=== PATIENT | female | born 1980 | race Caucasian/White ===

== ENCOUNTER 2016-12-14 03:41 | Inpatient (IN) | payer OTHER ==
[2016-12-14 04:10] VITALS: BMI 27.6
[2016-12-14] MEDS ORDERED: ONDANSETRON *ODT* 4 MG TABLET SL ONE (04:15)
[2016-12-14] MEDS ORDERED: KETOROLAC TROMETHAMINE 60 MG/2 ML VIAL IM ONE (04:15)
--- NOTE | 2016-12-14 04:15 | PDOC ---
History of Present Illness - General History Source: Patient Exam Limitations: No Limitations - History of Present Illness Initial Comments: 12/14/16 04:20 The patient is a 36 year old female with significant past medical history of gallstones who presents to the ED with 3 days of right upper quadrant pain, nausea and vomiting. Patient reports she visited her surgeon yesterday, where she schedule an elective surgery to have her gallbladder removed on December 22. Her surgeon prescribed her tylenol and she states taking the tylenol several times with no improvement. The patient denies fever, chills, cough, SOB, chest pain, and diarrhea. Allergies: NKDA Social History: No alcohol, tobacco, or drug use reported. Past Surgical History: None reported PCP: None reported <Nimco Limon - Last Filed: 12/14/16 04:20> - General History Source: Patient <FlorentinoMike parks - Last Filed: 12/14/16 19:29> - General Chief Complaint: Pain Stated Complaint: PAIN Time Seen by Provider: 12/14/16 03:50 Past History <Nimco Limon - Last Filed: 12/14/16 04:20> - Immunization History Td Vaccination: No - Psycho/Social/Smoking Cessation Hx Anxiety: No Suicidal Ideation: No Smoking Status: Yes Smoking History: Former smoker Have you smoked in the past 12 months: No Number of Cigarettes Smoked Daily: 20 Information on smoking cessation initiated: No Hx Alcohol Use: No Drug/Substance Use Hx: No Substance Use Type: None <Mike Valle - Last Filed: 12/14/16 19:29> - Past Medical History Allergies/Adverse Reactions: Allergies Allergy/AdvReac Type Severity Reaction Status Date / Time No Known Allergies Allergy Verified 06/10/15 20:08 Home Medications: Ambulatory Orders NK [No Known Home Medication] 12/14/16 Review of Systems - Review of Systems Able to Perform ROS?: Yes Comments:: 12/14/16 04:20 CONSTITUTIONAL: Absent: fever, no chills, no fatigue EYES: Absent: visual changes ENT: Absent: ear pain, no sore throat CARDIOVASCULAR: Absent: chest pain, no palpitations RESPIRATORY: Absent: cough, no SOB GI: +right upper quadrant pain, nausea, vomiting Absent: no constipation, no diarrhea GENITOURINARY: Absent: dysuria, no frequency, no hematuria MUSKULOSKELETAL: Absent: back pain, no arthralgia, no myalgia SKIN: Absent: rash NEURO: Absent: headache <Nimco Limon - Last Filed: 12/14/16 04:20> *Physical Exam - Vital Signs Last Vital Signs Temp Pulse Resp BP Pulse Ox 98.2 F 80 18 131/100 100 12/14/16 04:01 12/14/16 04:01 12/14/16 04:01 12/14/16 04:01 12/14/16 04:01 - Physical Exam Comments: 12/14/16 04:20 GENERAL: Well-appearing, well-nourished. Mild distress. HEENT: Normocephalic, atraumatic. PERRL, EOM intact. CARDIOVASCULAR: Normal S1, S2. Regular rate and rhythm. PULMONARY: Clear to auscultation bilaterally. ABDOMEN: Soft, non-distended, right upper quadrant tenderness. EXTREMITIES: Normal ROM in all four extremities. No gross deformities. SKIN: Warm, dry. No rash NEUROLOGICAL: No focal neurological deficits. <Nimco Limon - Last Filed: 12/14/16 04:20> - Vital Signs Last Vital Signs Temp Pulse Resp BP Pulse Ox 98.2 F 80 18 131/100 100 12/14/16 04:01 12/14/16 04:01 12/14/16 04:01 12/14/16 04:01 12/14/16 04:01 <Mike Valle - Last Filed: 12/14/16 19:29> ED Treatment Course - LABORATORY CBC & Chemistry Diagram: 12/14/16 04:50 12/14/16 04:50 <Mike Valle - Last Filed: 12/14/16 19:29> Medical Decision Making - Medical Decision Making 12/14/16 19:28 patient found to have choledocholithiasis on ultrasound. Patient admitted for pain control and eventual therapy Dr. Valle: The scribe's documentation has been prepared under my direction and personally reviewed by me in its entirery. I confirm that the note above accurately reflects all work, treatment, procedures, and medical decision making performed by me. <Mike Valle - Last Filed: 12/14/16 19:29> *DC/Admit/Observation/Transfer - Attestations Scribe Attestion: 12/14/16 04:21 Documentation prepared by Nimco Limon, acting as medical illustrator for Mike Valle MD <Nimco Limon - Last Filed: 12/14/16 04:20> <Mike Valle - Last Filed: 12/14/16 19:29> Diagnosis at time of Disposition: Choledocholithiasis, Gallstones - Discharge Dispostion Condition at time of disposition: Stable
[2016-12-14] MEDS ORDERED: KETOROLAC TROMETHAMINE 60 MG/2 ML VIAL ONE (04:26)
[2016-12-14] MEDS ORDERED: ONDANSETRON *ODT* 4 MG TABLET ONE (04:26)
[2016-12-14] MEDS ORDERED: SODIUM CHLORIDE 1,000 ML IV STA (04:39)
[2016-12-14 04:59] LABS: BASOPHIL 0.5 % (0-2.0); MCH 28.4 pg (25.7-33.7); MCHC 33.1 g/dl (32.0-36.0); MEAN CELL VOLUME 85.6 fl (80-96); MEAN PLT VOLUME 7.5 fl (7.5-11.1); PLATELET COUNT 333 K/MM3 (134-434); WHITE BLOOD COUNT 13.7 K/mm3 (4.0-10.0)
[2016-12-14 05:26] LABS: ALBUMIN 3.4 g/dl (3.4-5.0); ANION GAP 11 (8-16); BILIRUBIN,TOTAL 2.2 mg/dL (0.2-1.0); CALCIUM 8.4 mg/dL (8.5-10.1); CO2 26 mmol/L (21-32); CREATININE 0.7 mg/dL (0.55-1.02); GLUCOSE,RANDOM 96 mg/dL (74-106); TOT PROT 6.6 g/dl (6.4-8.2)
[2016-12-14 05:31] LABS: ALK PHOS 197 U/L (45-117)
[2016-12-14 05:33] LABS: SGOT/AST 1064 U/L (15-37); SGPT/ALT 657 U/L (12-78)
[2016-12-14] MEDS ORDERED: morphine CARPU-JECT 2 MG/1 ML DISP.SYRIN IVPUSH ONE (05:59)
[2016-12-14] MEDS ORDERED: ONDANSETRON 4 MG/2 ML VIAL IVPUSH STA (06:00)
[2016-12-14] MEDS ORDERED: morphine CARPU-JECT 4 MG/1 ML DISP.SYRIN ONE (06:01)
[2016-12-14] MEDS ORDERED: ONDANSETRON 4 MG/2 ML VIAL ONE (06:01)
[2016-12-14] MEDS ORDERED: morphine CARPU-JECT 2 MG/1 ML DISP.SYRIN ONE (06:01)
[2016-12-14] MEDS ORDERED: PIPERACILLIN/TAZOB 4.5 GM 4.5 GM in DEXTROSE 5%-WATER 100 ML IVPB ONE (07:05)
--- NOTE | 2016-12-14 07:10 | PDOC ---
*Physical Exam - Vital Signs Last Vital Signs Temp Pulse Resp BP Pulse Ox 97.9 F 69 18 107/79 100 12/14/16 07:45 12/14/16 07:45 12/14/16 07:45 12/14/16 07:45 12/14/16 07:45 <PioDona - Last Filed: 12/14/16 08:37> - Vital Signs Last Vital Signs Temp Pulse Resp BP Pulse Ox 98.2 F 80 18 131/100 100 12/14/16 04:01 12/14/16 04:01 12/14/16 04:01 12/14/16 04:01 12/14/16 04:01 - Physical Exam Comments: 12/14/16 07:09 Sign-out received from outgoing Emergency Physician Pt interviewed and examined Labs noted I am concerned for cholecystitis versus choledocholithiasis She does not have clinical signs or symptoms of cholangitis Will add lipase Will administer Zosyn Ultrasound pending I am also concerned for possible acetaminophen toxicity She took 4.5gm Sun and 2.5gm Sunday after heavy alcohol consumption Sunday, Sun and Sunday If the LFT abnormalities are secondary to acetaminophen mediated hepatotoxicity , I would expect a bump in her coags Will add PT/PTT Will add acetaminophen level 12/14/16 07:22 12/14/16 08:34 Ultrasound noted Lipase noted Clinical impression: Choledocholithiasis, without current evidence of ascending cholangitis Case discussed in detail with admitting provider including history, physical exam and ancillary studies. Admitting physician has assumed care for the patient, will follow all pending diagnostics and will complete the evaluation and treatment. <Martínez Jacobs - Last Filed: 12/14/16 16:21> ED Treatment Course - LABORATORY CBC & Chemistry Diagram: 12/14/16 04:50 12/14/16 04:50 - ADDITIONAL ORDERS Additional order review: Laboratory Results 12/14/16 12/14/16 12/14/16 07:34 07:34 04:50 INR 1.16 H PTT (Actin FS) 25.5 L Sodium Potassium Chloride Carbon Dioxide Anion Gap BUN Creatinine Creat Clearance w eGFR Random Glucose Calcium Total Bilirubin AST ALT Alkaline Phosphatase Total Protein Albumin Lipase Cancelled Serum , Qual Negative 12/14/16 04:50 INR PTT (Actin FS) Sodium 141 Potassium 3.8 Chloride 104 Carbon Dioxide 26 Anion Gap 11 BUN 13 Creatinine 0.7 Creat Clearance w eGFR > 60 Random Glucose 96 Calcium 8.4 L Total Bilirubin 2.2 H D AST 1064 H ALT 657 H D Alkaline Phosphatase 197 H D Total Protein 6.6 Albumin 3.4 Lipase 155 Serum , Qual 12/14/16 04:50 RBC 4.50 MCV 85.6 MCHC 33.1 RDW 15.0 MPV 7.5 Neutrophils % 77.0 D Lymphocytes % 13.7 D Monocytes % 4.8 Eosinophils % 4.0 Basophils % 0.5 - RADIOLOGY Radiograph Interpretation: 12/14/16 08:37 Abdominal US: The gallbladder is somewhat thickened and contracted with multiple calculi present. The possibility of acute cholecystitis cannot be excluded. If this is clinically suspected, a follow-up HIDA scan may be warranted. The liver is normal in size and texture with no intrahepatic masses seen. There is slight dilatation of the intrahepatic biliary tree and the CBD is mildly dilated measuring 8 mm. No obvious obstruction is identified. The pancreas is normal in size and texture with no pancreatic masses identified. The tail of the pancreas was not well visualized due to overlying bowel gas. There is no evidence of hydronephrosis or acute abnormalities of the right kidney. There is no evidence of AAA. The IVC is patent. IMPRESSION: Cholelithiasis and mild biliary ductal dilatation. Clinical correlation and follow-up recommended. Please see above discussion. Reported By: Philippe Camarena MD 12/14/16 0831 - Medications Given in the ED: ED Medications Discontinued Medications Generic Name Dose Route Start Last Admin Trade Name Freq PRN Reason Stop Dose Admin Sodium Chloride 1,000 mls @ 1,000 mls/hr 12/14/16 04:39 12/14/16 04:54 Normal Saline - IV 12/14/16 05:38 1,000 mls/hr ASDIR STA Administration Piperacillin Sod/Tazobactam 100 mls @ 200 mls/hr 12/14/16 07:05 12/14/16 07:34 Sod 4.5 gm/ Dextrose IVPB 12/14/16 07:34 200 mls/hr ONCE ONE Administration Ketorolac Tromethamine 60 mg 12/14/16 04:15 12/14/16 04:30 Toradol Injection - IM 12/14/16 04:16 60 mg ONCE ONE Administration Morphine Sulfate 6 mg 12/14/16 05:59 12/14/16 06:08 Morphine Injection - IVPUSH 12/14/16 06:00 6 mg ONCE ONE Administration Ondansetron HCl 4 mg 12/14/16 04:15 12/14/16 04:30 Zofran Odt - SL 12/14/16 04:16 4 mg ONCE ONE Administration Ondansetron HCl 4 mg 12/14/16 06:00 12/14/16 06:08 Zofran Injection IVPUSH 12/14/16 06:01 4 mg ONCE STA Administration <Dona Suero - Last Filed: 12/14/16 08:37> - LABORATORY CBC & Chemistry Diagram: 12/14/16 04:50 12/14/16 04:50 - ADDITIONAL ORDERS Additional order review: Laboratory Results 12/14/16 12/14/16 04:50 04:50 Sodium 141 Potassium 3.8 Chloride 104 Carbon Dioxide 26 Anion Gap 11 BUN 13 Creatinine 0.7 Creat Clearance w eGFR > 60 Random Glucose 96 Calcium 8.4 L Total Bilirubin 2.2 H D AST 1064 H ALT 657 H D Alkaline Phosphatase 197 H D Total Protein 6.6 Albumin 3.4 Serum , Qual Negative 12/14/16 04:50 RBC 4.50 MCV 85.6 MCHC 33.1 RDW 15.0 MPV 7.5 Neutrophils % 77.0 D Lymphocytes % 13.7 D Monocytes % 4.8 Eosinophils % 4.0 Basophils % 0.5 - Medications Given in the ED: ED Medications Discontinued Medications Generic Name Dose Route Start Last Admin Trade Name Freq PRN Reason Stop Dose Admin Sodium Chloride 1,000 mls @ 1,000 mls/hr 12/14/16 04:39 12/14/16 04:54 Normal Saline - IV 12/14/16 05:38 1,000 mls/hr ASDIR STA Administration Ketorolac Tromethamine 60 mg 12/14/16 04:15 12/14/16 04:30 Toradol Injection - IM 12/14/16 04:16 60 mg ONCE ONE Administration Morphine Sulfate 6 mg 12/14/16 05:59 12/14/16 06:08 Morphine Injection - IVPUSH 12/14/16 06:00 6 mg ONCE ONE Administration Ondansetron HCl 4 mg 12/14/16 04:15 12/14/16 04:30 Zofran Odt - SL 12/14/16 04:16 4 mg ONCE ONE Administration Ondansetron HCl 4 mg 12/14/16 06:00 12/14/16 06:08 Zofran Injection IVPUSH 12/14/16 06:01 4 mg ONCE STA Administration <Martínez Jacobs - Last Filed: 12/14/16 16:21> *DC/Admit/Observation/Transfer <Dona Suero - Last Filed: 12/14/16 08:37> <Martínez Jacobs - Last Filed: 12/14/16 16:21> Diagnosis at time of Disposition: Choledocholithiasis, Gallstones
[2016-12-14] MEDS ORDERED: PIPERACILLIN/TAZOB 4.5 GM 100 ML IVPB ONE (07:14)
--- NOTE | 2016-12-14 07:31 | PDOC ---
*Physical Exam - Vital Signs Last Vital Signs Temp Pulse Resp BP Pulse Ox 97.9 F 69 18 107/79 100 12/14/16 07:45 12/14/16 07:45 12/14/16 07:45 12/14/16 07:45 12/14/16 07:45 <PioDona - Last Filed: 12/14/16 09:07> - Vital Signs Last Vital Signs Temp Pulse Resp BP Pulse Ox 98.2 F 80 18 131/100 100 12/14/16 04:01 12/14/16 04:01 12/14/16 04:01 12/14/16 04:01 12/14/16 04:01 <Marybel Rodriguez - Last Filed: 12/14/16 09:14> Heart Score/ECG Review - ECG Impressions Comment:: 12/14/16 09:07 Sinus bradycardia with sinus arrhythmia at a rate of 58 BPM. Otherwise normal EKG. <Dona Suero - Last Filed: 12/14/16 09:07> ED Treatment Course - LABORATORY CBC & Chemistry Diagram: 12/14/16 04:50 12/14/16 04:50 - ADDITIONAL ORDERS Additional order review: Laboratory Results 12/14/16 12/14/16 12/14/16 07:34 07:34 04:50 INR 1.16 H PTT (Actin FS) 25.5 L Sodium Potassium Chloride Carbon Dioxide Anion Gap BUN Creatinine Creat Clearance w eGFR Random Glucose Calcium Total Bilirubin AST ALT Alkaline Phosphatase Total Protein Albumin Lipase Cancelled Serum , Qual Negative 12/14/16 04:50 INR PTT (Actin FS) Sodium 141 Potassium 3.8 Chloride 104 Carbon Dioxide 26 Anion Gap 11 BUN 13 Creatinine 0.7 Creat Clearance w eGFR > 60 Random Glucose 96 Calcium 8.4 L Total Bilirubin 2.2 H D AST 1064 H ALT 657 H D Alkaline Phosphatase 197 H D Total Protein 6.6 Albumin 3.4 Lipase 155 Serum , Qual 12/14/16 04:50 RBC 4.50 MCV 85.6 MCHC 33.1 RDW 15.0 MPV 7.5 Neutrophils % 77.0 D Lymphocytes % 13.7 D Monocytes % 4.8 Eosinophils % 4.0 Basophils % 0.5 - RADIOLOGY Radiograph Interpretation: 12/14/16 08:37 Abdominal US: The gallbladder is somewhat thickened and contracted with multiple calculi present. The possibility of acute cholecystitis cannot be excluded. If this is clinically suspected, a follow-up HIDA scan may be warranted. The liver is normal in size and texture with no intrahepatic masses seen. There is slight dilatation of the intrahepatic biliary tree and the CBD is mildly dilated measuring 8 mm. No obvious obstruction is identified. The pancreas is normal in size and texture with no pancreatic masses identified. The tail of the pancreas was not well visualized due to overlying bowel gas. There is no evidence of hydronephrosis or acute abnormalities of the right kidney. There is no evidence of AAA. The IVC is patent. IMPRESSION: Cholelithiasis and mild biliary ductal dilatation. Clinical correlation and follow-up recommended. Please see above discussion. Reported By: Philippe Camarena MD 12/14/16 0831 - Medications Given in the ED: ED Medications Discontinued Medications Generic Name Dose Route Start Last Admin Trade Name Freq PRN Reason Stop Dose Admin Sodium Chloride 1,000 mls @ 1,000 mls/hr 12/14/16 04:39 12/14/16 04:54 Normal Saline - IV 12/14/16 05:38 1,000 mls/hr ASDIR STA Administration Piperacillin Sod/Tazobactam 100 mls @ 200 mls/hr 12/14/16 07:05 12/14/16 07:34 Sod 4.5 gm/ Dextrose IVPB 12/14/16 07:34 200 mls/hr ONCE ONE Administration Ketorolac Tromethamine 60 mg 12/14/16 04:15 12/14/16 04:30 Toradol Injection - IM 12/14/16 04:16 60 mg ONCE ONE Administration Morphine Sulfate 6 mg 12/14/16 05:59 12/14/16 06:08 Morphine Injection - IVPUSH 12/14/16 06:00 6 mg ONCE ONE Administration Ondansetron HCl 4 mg 12/14/16 04:15 12/14/16 04:30 Zofran Odt - SL 12/14/16 04:16 4 mg ONCE ONE Administration Ondansetron HCl 4 mg 12/14/16 06:00 12/14/16 06:08 Zofran Injection IVPUSH 12/14/16 06:01 4 mg ONCE STA Administration <Dona Suero - Last Filed: 12/14/16 09:07> - LABORATORY CBC & Chemistry Diagram: 12/14/16 04:50 12/14/16 04:50 - ADDITIONAL ORDERS Additional order review: Laboratory Results 12/14/16 12/14/16 04:50 04:50 Sodium 141 Potassium 3.8 Chloride 104 Carbon Dioxide 26 Anion Gap 11 BUN 13 Creatinine 0.7 Creat Clearance w eGFR > 60 Random Glucose 96 Calcium 8.4 L Total Bilirubin 2.2 H D AST 1064 H ALT 657 H D Alkaline Phosphatase 197 H D Total Protein 6.6 Albumin 3.4 Serum , Qual Negative 12/14/16 04:50 RBC 4.50 MCV 85.6 MCHC 33.1 RDW 15.0 MPV 7.5 Neutrophils % 77.0 D Lymphocytes % 13.7 D Monocytes % 4.8 Eosinophils % 4.0 Basophils % 0.5 - Medications Given in the ED: ED Medications Discontinued Medications Generic Name Dose Route Start Last Admin Trade Name Freq PRN Reason Stop Dose Admin Sodium Chloride 1,000 mls @ 1,000 mls/hr 12/14/16 04:39 12/14/16 04:54 Normal Saline - IV 12/14/16 05:38 1,000 mls/hr ASDIR STA Administration Ketorolac Tromethamine 60 mg 12/14/16 04:15 12/14/16 04:30 Toradol Injection - IM 12/14/16 04:16 60 mg ONCE ONE Administration Morphine Sulfate 6 mg 12/14/16 05:59 12/14/16 06:08 Morphine Injection - IVPUSH 12/14/16 06:00 6 mg ONCE ONE Administration Ondansetron HCl 4 mg 12/14/16 04:15 12/14/16 04:30 Zofran Odt - SL 12/14/16 04:16 4 mg ONCE ONE Administration Ondansetron HCl 4 mg 12/14/16 06:00 12/14/16 06:08 Zofran Injection IVPUSH 12/14/16 06:01 4 mg ONCE STA Administration <Marybel Rodriguez - Last Filed: 12/14/16 09:14> Progress Note - Progress Note Progress Note: 36 year old female with past medical history of gall stone presented with the chief complaints of severe abdominal pain since last night. A/c to the patient, she has gall stone and had an elective cholecystectomy scheduled for 2016. Since yesterday at 11pm, she has had severe right upper quadrant pain initially then diffuse, 10/10, crampy in quality, not relieved by tylenol. Apparently, patient took 15-20 bottles of beer for three days (Sun,Sun,Sun). Since Sunday, she developed nausea, mild abdominal pain and vomiting. She went to her doctor on Sunday but was asked to take pain medication and that the scheduled elective cholecystectomy date couldn't be changed. She took 2.5 gm of Tylenol on Sunday and 4.5 gms of Tylenol on Sunday. Patient reports to have had elective termination of 2 weeks ago. Past Medical Hx: Gall stone since 2 yrs Allergies: NKDA Medications: None Family Hx: Unknown Hospitalization: Never been hospitalized except during delivery Elective termination of 2 weeks ago. <Marybel Rodriguez - Last Filed: 12/14/16 09:14> Medical Decision Making - Medical Decision Making 12/14/16 09:[address] Soto at [phone] Low called back at [phone], patients case was discussed. <Dona Suero - Last Filed: 12/14/16 09:07> - Medical Decision Making 12/14/16 07:10 Patient seen and examined at bedside. Vitals, unremarkable. Looks comfortable. Patient mentioned that Morphine reduced the abdominal pain and has only slight tenderness on palpation on the upper right quadrant. On the basis of history physical examination and labs, symptoms could be due to Cholelithiasis vs choledocholithiasis. She may have acetaminophen toxicity as she ingested 2.5gm on Sunday and 4.5gms of tylenol on Sunday. Would like to rule out pancreatitis as she has a h/o binge drinking for 3 days ( took almost 15bottles of beer/day) Lipase pending Waiting for abdominal imaging. 12/14/16 08:39 Abdominal USG reviewed, which shows choledocholithiasis. On the basis of history, physical examination and investigation, symptoms are consistent with choledocholithiasis with possible ascending chonlangitis. Needs admission inpatient and GI consultation 12/14/16 08:[address] San. She accepted the admission. As per her recommendation, I will call Dr. Soto now. 12/14/16 09:[address] Low, he recommends Hydration and MRCP. A/P # Choledocholithiasis with possible ascending cholangitis NPO Admit to Med-Surg IV Hydration MRCP Alcohol cessation counseling. Illness, Investigation and Plan of care explained to the patient. She verbalized understanding. Case seen and discussed with Dr. Jacobs. <Marybel Rodriguez - Last Filed: 12/14/16 09:14> *DC/Admit/Observation/Transfer <Dona Suero - Last Filed: 12/14/16 09:07> - Discharge Dispostion Admit: Yes <Marybel Rodriguez - Last Filed: 12/14/16 09:14> Diagnosis at time of Disposition: Choledocholithiasis, Gallstones
[2016-12-14 08:26] LABS: INR 1.16 (0.82-1.09); PROTHROMBIN TIME (PATIENT) 12.8 SEC (9.98-11.88)
[2016-12-14 08:29] LABS: ACTIVATED PTT 25.5 SECONDS (26.9-34.4)
[2016-12-14] MEDS: SODIUM CHLORIDE 1,000 ML IV SCH ×3 (09:32→09:33)
[2016-12-14] MEDS: morphine CARPU-JECT 2 MG/1 ML DISP.SYRIN IVPUSH PRN ×3 (11:20→21:14)
--- NOTE | 2016-12-14 11:35 | HP ---
CHIEF COMPLAINT: abdominal pain PCP: HISTORY OF PRESENT ILLNESS: 36 yr old woman with 3-yr history of cholelithiasis presented to ED with abdominal pain for past 3 days. She was drinking heavily Fri/Sat Sun with last drink of beer Sunday morning after which she developed RUQ that is continuous. She took tylenol without relief for past 3 days. Was scheduled for elective cholecystectomy on December 22. 3 weeks ago she underwent D&C for unwanted pregnany (4wks). She has scant off- white colored vaginal discharge, no clots, no bright red blood, no foul- smelling discharge. denies withdrawal seizures or DT. ER course was notable for: (1) zosyn 1 dose (2) ultrasound Recent Travel: none PAST MEDICAL HISTORY: cholelithiasis PAST SURGICAL HISTORY: Social History: Smoking: started at age 19 - 22. quit at 22. started again at age 27, 1 pk every 3days Alcohol: started age 19, not a daily drinker but does drink to excess 2-3/month Drugs: marijuana use occasionaly, no IVDU Family History: "stomach cancer" in father, mother and sister with DM and HTN Allergies No Known Allergies Allergy (Verified 06/10/15 20:08) HOME MEDICATIONS: Home Medications Medication Instructions Recorded NK [No Known Home Medication] 12/14/16 REVIEW OF SYSTEMS CONSTITUTIONAL: Present: chills, Absent: fever, diaphoresis, generalized weakness, malaise, loss of appetite, weight change HEENT: Absent: rhinorrhea, nasal congestion, throat pain, throat swelling, difficulty swallowing, mouth swelling, ear pain, eye pain, visual changes CARDIOVASCULAR: Absent: chest pain, syncope, palpitations, irregular heart rate, lightheadedness , peripheral edema RESPIRATORY: Absent: cough, shortness of breath, dyspnea with exertion, orthopnea, wheezing, stridor, hemoptysis GASTROINTESTINAL: Present:abdominal pain, nausea, Absent: abdominal distension, vomiting, diarrhea, constipation, melena, hematochezia GENITOURINARY: Absent: dysuria, frequency, urgency, hesitancy, hematuria, flank pain, genital pain MUSCULOSKELETAL: Absent: myalgia, arthralgia, joint swelling, back pain, neck pain SKIN: Absent: rash, itching, pallor HEMATOLOGIC/IMMUNOLOGIC: Absent: easy bleeding, easy bruising, lymphadenopathy, frequent infections ENDOCRINE: Absent: unexplained weight gain, unexplained weight loss, heat intolerance, cold intolerance NEUROLOGIC: Absent: headache, focal weakness or paresthesias, dizziness, unsteady gait, seizure, mental status changes, bladder or bowel incontinence PSYCHIATRIC: Absent: anxiety, depression, suicidal or homicidal ideation, hallucinations. PHYSICAL EXAMINATION Vital Signs - 24 hr 12/14/16 10:38 Temperature 98.0 F Pulse Rate 59 L Pulse Rate [ 60 Apical] Respiratory 17 Rate Blood Pressure 98/62 Blood Pressure 102/63 [Left Arm] O2 Sat by Pulse 99 Oximetry (%) GENERAL: Awake, alert, and fully oriented, in no acute distress. HEAD: Normal with no signs of trauma. EYES: Pupils equal, round and reactive to light, extraocular movements intact, sclera anicteric, conjunctiva clear. No lid lag. EARS, NOSE, THROAT: Ears normal, nares patent, oropharynx clear without exudates. Moist mucous membranes. NECK: Normal range of motion, supple without lymphadenopathy, JVD, or masses. LUNGS: Breath sounds equal, clear to auscultation bilaterally. No wheezes, and no crackles. No accessory muscle use. HEART: Regular rate and rhythm, normal S1 and S2 without murmur, rub or gallop. ABDOMEN: Soft, tender in RUQ, mild ttp in left and right lower quadrant, not distended, normoactive bowel sounds, no guarding, no rebound, no masses. MUSCULOSKELETAL: Normal range of motion at all joints. No bony deformities or tenderness. No CVA tenderness. UPPER EXTREMITIES: 2+ pulses, warm, well-perfused. No cyanosis. No clubbing. No peripheral edema. LOWER EXTREMITIES: 2+ pulses, warm, well-perfused. No calf tenderness. No peripheral edema. NEUROLOGICAL: Normal speech. PSYCHIATRIC: Cooperative. Good eye contact. Appropriate mood and affect. SKIN: Warm, dry, normal turgor, no rashes or lesions noted. CBC,CMP WBC 13.7 K/mm3 (4.0-10.0) H 12/14/16 04:50 RBC 4.50 M/mm3 (3.60-5.2) 12/14/16 04:50 Hgb 12.8 GM/dL (10.7-15.3) 12/14/16 04:50 Hct 38.5 % (32.4-45.2) 12/14/16 04:50 MCV 85.6 fl (80-96) 12/14/16 04:50 MCHC 33.1 g/dl (32.0-36.0) 12/14/16 04:50 RDW 15.0 % (11.6-15.6) 12/14/16 04:50 Plt Count 333 K/MM3 (134-434) 12/14/16 04:50 MPV 7.5 fl (7.5-11.1) 12/14/16 04:50 Neutrophils % 77.0 % (42.8-82.8) D 12/14/16 04:50 Lymphocytes % 13.7 % (8-40) D 12/14/16 04:50 Monocytes % 4.8 % (3.8-10.2) 12/14/16 04:50 Eosinophils % 4.0 % (0-4.5) 12/14/16 04:50 Basophils % 0.5 % (0-2.0) 12/14/16 04:50 Sodium 141 mmol/L (136-145) 12/14/16 04:50 Potassium 3.8 mmol/L (3.5-5.1) 12/14/16 04:50 Chloride 104 mmol/L (98-107) 12/14/16 04:50 Carbon Dioxide 26 mmol/L (21-32) 12/14/16 04:50 Anion Gap 11 (8-16) 12/14/16 04:50 BUN 13 mg/dL (7-18) 12/14/16 04:50 Creatinine 0.7 mg/dL (0.55-1.02) 12/14/16 04:50 Creat Clearance w eGFR > 60 (>60) 12/14/16 04:50 Random Glucose 96 mg/dL (74-106) 12/14/16 04:50 Calcium 8.4 mg/dL (8.5-10.1) L 12/14/16 04:50 Total Bilirubin 2.2 mg/dL (0.2-1.0) H D 12/14/16 04:50 AST 1064 U/L (15-37) H 12/14/16 04:50 ALT 657 U/L (12-78) H D 12/14/16 04:50 Alkaline Phosphatase 197 U/L (45-117) H D 12/14/16 04:50 Total Protein 6.6 g/dl (6.4-8.2) 12/14/16 04:50 Albumin 3.4 g/dl (3.4-5.0) 12/14/16 04:50 Lipase Cancelled 12/14/16 07:34 Serum , Qual Negative 12/14/16 04:50 ASSESSMENT/PLAN: 36 yr old woman with hx of cholelithiasis presents with RUQ pain found to have mild CBD dilation. #Choledocolithiasis - MRCP to evaluate CBD dilatation - Dr. Low consulted - rocephin 1gm daily + flagyl 250 q8h - zofran for nausea, morphine for pain control - NPO - IVF NS #Transaminitis - from alcohol use (AST>ALT) and likely from tylenol use (4.5gm Sun and 2.5gm Sunday) #acetominophen level - avoid tylenol in this patient #ETOH abuse - CIWA 0 - librium taper not indicated #Nicotine dependence - nicotine patch 7mg tp daily - smoking cessation counseling 3mins DVT low risk, encourage ambulation Diet - NPO Visit type - Emergency Visit Emergency Visit: No - New Patient This patient is new to me today: No - Critical Care Critical Care patient: No
[2016-12-14] MEDS: NICOTINE 7 MG/24 HOURS TOPICAL PATCH TD SCH (12:57)
--- NOTE | 2016-12-14 14:37 | PN ---
Teaching Attending Note Name of Resident: Giancarlo Chapa ATTENDING PHYSICIAN STATEMENT I saw and evaluated the patient. I reviewed the resident's note and discussed the case with the resident. I agree with the resident's findings and plan as documented. SUBJECTIVE:36 year old female with history of cholelithiasis that presents to the emergency department complaining of worsening RUQ abdominal pain associated with nausea. Pain is 7/10 in intensity and constant. She took 2g of Tylenol which did not relive her symptoms. Multiple similar episodes of RUQ pain over the past 2 years after she was diagnosed with cholelithiasis. She was scheduled for an elective cholecystectomy on December 22 . ROS was positive for alcohol abuse, last drink was consumed on Sunday . Denies hallucinations or tremor at this time. No fever, no nausea, no vomiting . OBJECTIVE: Vital Signs - 24 hr 12/14/16 12/14/16 12/14/16 04:01 07:45 10:38 Temperature 98.2 F 97.9 F 98.0 F Pulse Rate 80 59 L Pulse Rate [ 69 60 Apical] Respiratory 18 18 17 Rate Blood Pressure 131/100 98/62 Blood Pressure 107/79 102/63 [Left Arm] O2 Sat by Pulse 100 100 99 Oximetry (%) GENERAL: Awake, alert, and fully oriented, in no acute distress. HEAD: Normal with no signs of trauma. EYES: Pupils equal, round and reactive to light, extraocular movements intact, sclera anicteric, conjunctiva clear. No lid lag. EARS, NOSE, THROAT: Ears normal, nares patent, oropharynx clear without exudates. Moist mucous membranes. NECK: Normal range of motion, supple without lymphadenopathy, JVD, or masses. LUNGS: Breath sounds equal, clear to auscultation bilaterally. No wheezes, and no crackles. No accessory muscle use. HEART: Regular rate and rhythm, normal S1 and S2 without murmur, rub or gallop. ABDOMEN: Soft, RUQ tenderness, no rebound, no guarding MUSCULOSKELETAL: Normal range of motion at all joints. No bony deformities or tenderness. No CVA tenderness. UPPER EXTREMITIES: 2+ pulses, warm, well-perfused. No cyanosis. No clubbing. Cap refill <2 seconds. No peripheral edema. LOWER EXTREMITIES: 2+ pulses, warm, well-perfused. No calf tenderness. No peripheral edema. NEUROLOGICAL: Cranial nerves II-XII intact. Normal speech. Normal gait. PSYCHIATRIC: Cooperative. Good eye contact. Appropriate mood and affect. SKIN: Warm, dry, normal turgor, no rashes or lesions noted. CBC, BMP 12/14/16 04:50 12/14/16 04:50 Hepatic Panel Total Bilirubin 2.2 mg/dL (0.2-1.0) H D 12/14/16 04:50 AST 1064 U/L (15-37) H 12/14/16 04:50 ALT 657 U/L (12-78) H D 12/14/16 04:50 Alkaline Phosphatase 197 U/L (45-117) H D 12/14/16 04:50 Albumin 3.4 g/dl (3.4-5.0) 12/14/16 04:50 Hepatic Panel Total Bilirubin 2.2 mg/dL (0.2-1.0) H D 12/14/16 04:50 AST 1064 U/L (15-37) H 12/14/16 04:50 ALT 657 U/L (12-78) H D 12/14/16 04:50 Alkaline Phosphatase 197 U/L (45-117) H D 12/14/16 04:50 Albumin 3.4 g/dl (3.4-5.0) 12/14/16 04:50 US of RUQ - cholelithiasis and dilated CBD to 8mm Tylenol Level - low ASSESSMENT AND PLAN: 1. Abdominal pain secondary to cholelithiasis and possible cholangitis secondary to cbd obstruction. 2. SIRS 2/2 #1 - Stat MRCP for evaluation of CBD obstruction -GI evaluation for ERCP if indicated - IV Zosyn -blood cultures -Monitor liver enzymes - surgery evaluation when LFT`s improve -NPO -pain control with IV morphine PRN 3. History of alcohol abuse- no signs of DT at this time, patient has been counselled. 4. DVT ppx -Lovenox SC Based on severity of patients symptoms and risk of liver failure and sepsis, plan of care includes IV antibiotics, IV narcotics, ERCP procedure and posiible cholecystectomy she meets medical necessity for hospitalization and length of stay expectation is greater then 48hrs. Admit as an inpatient.
--- NOTE | 2016-12-14 14:59 | EKG ---
Test Reason : Blood Pressure : / mmHG Vent. Rate : 058 BPM Atrial Rate : 058 BPM P-R Int : 174 ms QRS Dur : 078 ms QT Int : 432 ms P-R-T Axes : 052 060 045 degrees QTc Int : 424 ms SINUS BRADYCARDIA WITH SINUS ARRHYTHMIA OTHERWISE NORMAL ECG NO PREVIOUS ECGS AVAILABLE Confirmed by RAI SAGASTUME, LETICIA ([id number]) on 12/14/2016 2:58:51 PM Referred By: Confirmed By:LETICIA ATWOOD MD
[2016-12-14] MEDS ORDERED: THIAMINE HCL 100 MG TABLET (FP) PO SCH (16:45)
[2016-12-14] MEDS ORDERED: METRONIDAZOLE PREMIXED IVPB 50 ML IVPB SCH (18:00)
--- NOTE | 2016-12-14 18:23 | CON.GI ---
Consult Consult Specialty:: GI Referred by:: hospitalist - History of Present Illness History of Present Illness: 36 y/o female with PMH of cholelithiasis was admitted because of persisitent RUQ pain for the past 3 days. In the ER, she was noted to have markedly elevated LFT associated with cholelithiasis and dilated intrahepatic intrahepatic ducts and CBD ultrasound - Past Medical History ...LMP: 08/18/17 ...LMP Comment: PT HAD ELECTIVE AB ON 11/24/2016 ...: No - Alcohol/Substance Use Hx Alcohol Use: No - Smoking History Smoking history: Current every day smoker Have you smoked in the past 12 months: Yes Aproximately how many cigarettes per day: 6 Home Medications - Allergies Allergies/Adverse Reactions: Allergies Allergy/AdvReac Type Severity Reaction Status Date / Time No Known Allergies Allergy Verified 06/10/15 20:08 - Home Medications Home Medications: Ambulatory Orders NK [No Known Home Medication] 12/14/16 Review of Systems - Review of Systems Constitutional: denies: Fever Eyes: denies: Blind Spots HENT: denies: Difficult Swallowing Neck: denies: Decreased ROM Cardiovascular: denies: Chest Pain Respiratory: denies: SOB Gastrointestinal: reports: Abdominal Pain. denies: Bloating, Constipation, Diarrhea, Dysphagia, Indigestion, Melena, Nausea, Rectal Bleeding, Vomiting Physical Exam-GI Vital Signs: Vital Signs Temperature 97.9 F 12/14/16 10:38 Pulse Rate 60 12/14/16 10:38 Respiratory Rate 18 12/14/16 10:38 Blood Pressure 102/63 12/14/16 10:38 O2 Sat by Pulse Oximetry (%) 97 12/14/16 10:38 Constitutional: Yes: Well Nourished Eyes: Yes: Conjunctiva Clear HENT: Yes: Atraumatic Neck: Yes: Trachea Midline Cardiovascular: Yes: Regular Rate and Rhythm Respiratory: Yes: CTA Bilaterally ...Palpate: Yes: Soft, Tenderness (--RUQ). No: Firm/Rigid, Guarding, Hepatomegaly, Mass, Pulsatile Mass, Splenomegaly Labs: INR, PTT INR 1.16 (0.82-1.09) H 12/14/16 07:34 Imaging - Results Ultrasound: Report Reviewed Problem List - Problems (1) Dilated bile duct Assessment/Plan: associated with elevated LFTS r/o CBD stone R> MRI check LFTS in am ERCP tomorrow afternoon--discussed risk and benefits of ERCP including severe pancreatitis, informed consent obtained Code(s): K83.8 - OTHER SPECIFIED DISEASES OF BILIARY TRACT
[2016-12-14] MEDS ORDERED: PT OWN MED DRAWER 7, Y5N ONE ×2 (21:17→21:27)
[2016-12-14] MEDS: cefTRIAXone 1 GM/50 ML BAG (PRE-DOCKED) IVPB SCH (21:22)
[2016-12-14] MEDS: METRONIDAZOLE PREMIXED IVPB 50 ML IVPB SCH (22:20)
[2016-12-15] MEDS: METRONIDAZOLE PREMIXED IVPB 50 ML IVPB SCH ×2 (01:23→14:01)
[2016-12-15] MEDS: morphine CARPU-JECT 2 MG/1 ML DISP.SYRIN IVPUSH PRN ×4 (01:24→23:03)
[2016-12-15 07:22] LABS: BASOPHIL 0.9 % (0-2.0); EOSINOPHIL 8.8 % (0-4.5); MCH 28.7 pg (25.7-33.7); MCHC 32.8 g/dl (32.0-36.0); MEAN CELL VOLUME 87.5 fl (80-96); MEAN PLT VOLUME 7.6 fl (7.5-11.1); NEUTROPHILS 56.5 % (42.8-82.8); PLATELET COUNT 301 K/MM3 (134-434); RDW 14.4 % (11.6-15.6); WHITE BLOOD COUNT 9.8 K/mm3 (4.0-10.0)
[2016-12-15 07:57] LABS: ALBUMIN 2.9 g/dl (3.4-5.0); ALK PHOS 191 U/L (45-117); ANION GAP 11 (8-16); BILIRUBIN,TOTAL 0.8 mg/dL (0.2-1.0); CALCIUM 8.1 mg/dL (8.5-10.1); CO2 22 mmol/L (21-32); CREATININE 0.7 mg/dL (0.55-1.02); GLUCOSE,RANDOM 70 mg/dL (74-106); SGOT/AST 225 U/L (15-37); TOT PROT 5.5 g/dl (6.4-8.2)
[2016-12-15 08:13] LABS: SGPT/ALT 456 U/L (12-78)
[2016-12-15] MEDS: cefTRIAXone 1 GM/50 ML BAG (PRE-DOCKED) IVPB SCH (09:51)
[2016-12-15] MEDS: NICOTINE 7 MG/24 HOURS TOPICAL PATCH TD SCH (09:52)
[2016-12-15] MEDS ORDERED: CEFTRIAXONE 1 GM in DEXTROSE 5%-WATER - 50 ML IVPB SCH (10:00)
[2016-12-15] MEDS: SODIUM CHLORIDE 1,000 ML IV SCH ×3 (11:23→19:30)
--- NOTE | 2016-12-15 14:07 | PN ---
Physical Exam: SUBJECTIVE: Patient seen and examined. c/o hunger. wants to eat. OBJECTIVE: Vital Signs Period Temp Pulse Resp BP Sys/Gomez Pulse Ox Last 24 Hr 97.4 F-98.9 F 61-72 18-20 105-117/61-73 99 GENERAL: The patient is awake, alert, and fully oriented, in no acute distress. EYES: PERRL, extraocular movements intact, ENT: oropharynx clear without exudates, moist mucous membranes. NECK: Trachea midline, full range of motion, supple. LUNGS: Breath sounds equal, clear to auscultation bilaterally, n HEART: Regular rate and rhythm, S1, S2 ABDOMEN: Soft, nontender, nondistended, normoactive bowel sounds, no guarding, no rebound EXTREMITIES: 2+ pulses, warm, well-perfused, no edema. Laboratory Results - last 24 hr 12/15/16 12/15/16 06:50 06:50 WBC 9.8 RBC 4.10 Hgb 11.8 Hct 35.9 MCV 87.5 MCHC 32.8 RDW 14.4 Plt Count 301 MPV 7.6 Neutrophils % 56.5 D Lymphocytes % 29.2 D Monocytes % 4.6 Eosinophils % 8.8 H D Basophils % 0.9 Sodium 144 Potassium 4.0 Chloride 111 H Carbon Dioxide 22 Anion Gap 11 BUN 10 D Creatinine 0.7 Creat Clearance w eGFR > 60 Random Glucose 70 L D Calcium 8.1 L Total Bilirubin 0.8 D AST 225 H D ALT 456 H D Alkaline Phosphatase 191 H Total Protein 5.5 L Albumin 2.9 L Active Medications Generic Name Dose Route Start Last Admin Trade Name Freq PRN Reason Stop Dose Admin Ceftriaxone Sodium 1 gm 12/14/16 16:45 12/15/16 09:51 Rocephin 1gm Ivpb (Pre-Docked) IVPB 1 gm DAILY NENA Administration Sodium Chloride 1,000 mls @ 100 mls/hr 12/14/16 09:15 12/15/16 11:32 Normal Saline - IV Not Given ASDIR NENA Sodium Chloride 1,000 mls @ 125 mls/hr 12/14/16 09:30 12/15/16 11:23 Normal Saline - IV 125 mls/hr ASDIR NENA Administration Metronidazole 50 mls @ 50 mls/hr 12/14/16 21:30 12/15/16 14:01 Flagyl 250mg Premixed Ivpb - IVPB 50 mls/hr Q8H-IV NENA Administration Morphine Sulfate 2 mg 12/14/16 09:26 12/15/16 09:49 Morphine Injection - IVPUSH 2 mg Q3H PRN Administration PAIN Nicotine 7 mg 12/14/16 12:00 12/15/16 09:52 Nicoderm Patch - TD 7 mg DAILY NENA Administration ASSESSMENT/PLAN: 36 yr old woman with hx of cholelithiasis presents with RUQ pain found to have mild CBD dilation. #Choledocolithiasis - 4-5 mm stone in distal CBD with mild proximal CBD dilatation measuring 7mm and mild intrahepatic biliary ductal fluid seen on MRCP - Dr. Low consulted - Dr. Yung consulted for further surgical intervation evaluation - rocephin 1gm daily + flagyl 250 q8h -- started 12/14 - zofran for nausea, morphine for pain control - decreased morphine to 1mg/q6hr as pt was not c/o abdominal pain and appeared mildly lethargic. - NPO - IVF NS #Transaminitis - improving - from alcohol use (AST>ALT) and likely from tylenol use (4.5gm Sun and 2.5gm Sunday) #acetominophen level - avoid tylenol in this patient #ETOH abuse - CIWA 0 - librium taper not indicated #Nicotine dependence - nicotine patch 7mg tp daily - will provide smoking cessation information upon discharge DVT low risk, encourage ambulation Diet - NPO Visit type - Emergency Visit Emergency Visit: No - New Patient This patient is new to me today: No - Critical Care Critical Care patient: No - Discharge Referral Referred to [facility] No
--- NOTE | 2016-12-15 16:43 | PN ---
Teaching Attending Note Name of Resident: Giancarlo Chapa ATTENDING PHYSICIAN STATEMENT I saw and evaluated the patient. I reviewed the resident's note and discussed the case with the resident. I agree with the resident's findings and plan as documented. SUBJECTIVE: abdominal pain is controlled. Patient appears lethargic from IV morphine OBJECTIVE: Vital Signs Temperature 98.3 F 12/15/16 14:34 Pulse Rate 79 12/15/16 14:34 Respiratory Rate 20 12/15/16 14:34 Blood Pressure 109/69 12/15/16 14:34 O2 Sat by Pulse Oximetry (%) 99 12/15/16 09:00 ENERAL: Awake, alert, and fully oriented, in no acute distress. HEAD: Normal with no signs of trauma. EYES: Pupils equal, round and reactive to light, extraocular movements intact, sclera anicteric, conjunctiva clear. No lid lag. EARS, NOSE, THROAT: Ears normal, nares patent, oropharynx clear without exudates. Moist mucous membranes. NECK: Normal range of motion, supple without lymphadenopathy, JVD, or masses. LUNGS: Breath sounds equal, clear to auscultation bilaterally. No wheezes, and no crackles. No accessory muscle use. HEART: Regular rate and rhythm, normal S1 and S2 without murmur, rub or gallop. ABDOMEN: Soft, RUQ tenderness, no rebound, no guarding MUSCULOSKELETAL: Normal range of motion at all joints. No bony deformities or tenderness. No CVA tenderness. UPPER EXTREMITIES: 2+ pulses, warm, well-perfused. No cyanosis. No clubbing. Cap refill <2 seconds. No peripheral edema. LOWER EXTREMITIES: 2+ pulses, warm, well-perfused. No calf tenderness. No peripheral edema. NEUROLOGICAL: Cranial nerves II-XII intact. Normal speech. Normal gait. PSYCHIATRIC: Cooperative. Good eye contact. Appropriate mood and affect. SKIN: Warm, dry, normal turgor, no rashes or lesions noted. Abnormal Lab Results 12/15/16 12/15/16 06:50 06:50 Eosinophils % 8.8 H D Chloride 111 H Random Glucose 70 L D Calcium 8.1 L AST 225 H D ALT 456 H D Alkaline Phosphatase 191 H Total Protein 5.5 L Albumin 2.9 L MRI abdomen - choledocholithiasis, cholelithiasis, CBD dialtion and susp acute cholecystitis ASSESSMENT 1. Abdominal pain 2. CHoledocholithiasis and acute CBD obstruction 3. Possible cholangitis and cholecystitis 2. SIRS 2/2 #3- resolving 3. History of alcohol abuse- no signs of DT at this time, patient has been counselled. PLAN - ERCP today - Trend LFT -C/w antibiotics - IP or elective cholecystectomy depending on course - surgery evaluation Based on severity of patients symptoms and risk of liver failure and sepsis, plan of care includes IV antibiotics, IV narcotics, ERCP procedure and posiible cholecystectomy she meets medical necessity for hospitalization and length of stay expectation is greater then 48hrs.
[2016-12-15] MEDS ORDERED: ROCURONIUM BROMIDE 50 MG/5 ML VIAL ONE (16:45)
[2016-12-15] MEDS ORDERED: PROPOFOL 20 ML ONE (16:45)
[2016-12-15] MEDS ORDERED: NEOSTIGMINE METHYLSULFATE 0.5 MG/ML - 10 ML MDV ONE (16:46)
[2016-12-15] MEDS: HYDROmorphone HCL CARPU-JECT 1 MG/1 ML DISP.SYRIN IVPUSH PRN ×2 (16:50→17:00)
[2016-12-15] MEDS ORDERED: IOHEXOL 180 MG/1 ML ML IJ ONE (17:45)
[2016-12-15] MEDS ORDERED: morphine CARPU-JECT 2 MG/1 ML DISP.SYRIN IVPUSH PRN (18:13)
[2016-12-15] MEDS ORDERED: PROMETHAZINE HCL 25 MG/1 ML VIAL IVPUSH PRN (18:47)
[2016-12-15] MEDS ORDERED: ONDANSETRON 4 MG/2 ML VIAL IVPUSH PRN (18:47)
[2016-12-15] MEDS ORDERED: HYDROmorphone HCL CARPU-JECT 2 MG/1 ML DISP.SYRIN ONE (18:47)
[2016-12-15] MEDS ORDERED: LACTATED RINGERS SOLUTION 1,000 ML IV SCH (19:00)
[2016-12-15] MEDS ORDERED: PANTOPRAZOLE SODIUM 100 ML IVPB ONE (19:00)
[2016-12-15] MEDS ORDERED: SODIUM CHLORIDE 1,000 ML IV SCH (19:12)
[2016-12-15] MEDS: METOCLOPRAMIDE HCL INJECTION 10 MG/2 ML VIAL IVPB SCH (19:45)
[2016-12-16] MEDS: METOCLOPRAMIDE HCL INJECTION 10 MG/2 ML VIAL IVPB SCH ×3 (02:12→17:43)
[2016-12-16] MEDS: METRONIDAZOLE PREMIXED IVPB 50 ML IVPB SCH ×4 (02:13→17:51)
[2016-12-16] MEDS: morphine CARPU-JECT 2 MG/1 ML DISP.SYRIN IVPUSH PRN ×3 (06:13→20:16)
--- NOTE | 2016-12-16 08:28 | CONSULT ---
Consult Consult Specialty:: surgery Referred by:: erich - History of Present Illness Chief Complaint: Abdominal pain History of Present Illness: 36 yr old female presents to the ER with RUQ pain, admitted with Elevated LFTs and MRI showed dilated CBD and intra hepatic ducts. Patient underwent ERCP and was found to have large CBD stones that could not be removed Currently feeling well - Past Medical History ...LMP: 08/18/17 ...LMP Comment: PT HAD ELECTIVE AB ON 11/24/2016 ...: No - Alcohol/Substance Use Hx Alcohol Use: No - Smoking History Smoking history: Former smoker Have you smoked in the past 12 months: No Aproximately how many cigarettes per day: 20 Home Medications - Allergies Allergies/Adverse Reactions: Allergies Allergy/AdvReac Type Severity Reaction Status Date / Time No Known Allergies Allergy Verified 06/10/15 20:08 - Home Medications Home Medications: Ambulatory Orders NK [No Known Home Medication] 12/14/16 Physical Exam Vital Signs: Vital Signs Temperature 98.6 F 12/16/16 06:00 Pulse Rate 57 L 12/16/16 06:00 Respiratory Rate 20 12/16/16 06:00 Blood Pressure 106/71 12/16/16 06:00 O2 Sat by Pulse Oximetry (%) 98 12/15/16 19:30 Labs: CBC, BMP 12/15/16 06:50 12/15/16 06:50 Imaging - Results Ultrasound: Report Reviewed, Image Reviewed MRI: Report Reviewed, Image Reviewed Problem List - Problems (1) Choledocholithiasis Code(s): K80.50 - CALCULUS OF BILE DUCT W/O CHOLANGITIS OR CHOLECYST W/O OBST (2) Dilated bile duct Code(s): K83.8 - OTHER SPECIFIED DISEASES OF BILIARY TRACT (3) Gallstones Code(s): K80.20 - CALCULUS OF GALLBLADDER W/O CHOLECYSTITIS W/O OBSTRUCTION Assessment/Plan 36 yr old female with large CBD stones unable to be removed via ERCP Stent in place, LFTs trending down Will schedule for elective outpatient CBD exploration and cholecystectomy
[2016-12-16 08:55] LABS: MCH 28.7 pg (25.7-33.7); MCHC 32.9 g/dl (32.0-36.0); MEAN CELL VOLUME 87.2 fl (80-96); MEAN PLT VOLUME 7.6 fl (7.5-11.1); PLATELET COUNT 291 K/MM3 (134-434); RDW 14.9 % (11.6-15.6); WHITE BLOOD COUNT 12.2 K/mm3 (4.0-10.0)
[2016-12-16 09:23] LABS: ALBUMIN 2.7 g/dl (3.4-5.0); CALCIUM 8.3 mg/dL (8.5-10.1)
[2016-12-16 09:28] LABS: BILIRUBIN,DIRECT 0.2 mg/dL (0.0-0.2); BILIRUBIN,TOTAL 0.5 mg/dL (0.2-1.0); CREATININE 0.6 mg/dL (0.55-1.02); TOT PROT 5.5 g/dl (6.4-8.2)
--- NOTE | 2016-12-16 09:28 | PN ---
Physical Exam: SUBJECTIVE: Patient seen and examined. She continues to have intermittent abdominal pain unrelated to meals. She denies nausea and vomiting. OBJECTIVE: Vital Signs Period Temp Pulse Resp BP Sys/Gomez Pulse Ox Last 24 Hr 98.3 F-99.0 F 55-79 18-26 99-112/55-71 97-99 GENERAL: The patient is awake, alert, and fully oriented, in no acute distress. LUNGS: Breath sounds equal, clear to auscultation bilaterally, no wheezes, no crackles, no accessory muscle use. HEART: Regular rate and rhythm, S1, S2 without murmur, rub or gallop. ABDOMEN: Soft, nontender, nondistended, normoactive bowel sounds, no guarding, no rebound, no hepatosplenomegaly, no masses. EXTREMITIES: 2+ pulses, warm, well-perfused, no edema. Laboratory Results - last 24 hr 12/16/16 08:40 WBC 12.2 H RBC 3.87 Hgb 11.1 Hct 33.8 MCV 87.2 MCHC 32.9 RDW 14.9 Plt Count 291 MPV 7.6 Active Medications Generic Name Dose Route Start Last Admin Trade Name Freq PRN Reason Stop Dose Admin Ceftriaxone Sodium 1 gm 12/16/16 10:00 Rocephin 1gm Ivpb (Pre-Docked) IVPB DAILY NENA Lactated Ringer's 1,000 mls @ 125 mls/hr 12/15/16 19:00 12/15/16 22:20 Lactated Ringers Solution IV Not Given ASDIR NENA Metronidazole 50 mls @ 50 mls/hr 12/16/16 02:00 12/16/16 02:13 Flagyl 250mg Premixed Ivpb - IVPB 50 mls/hr Q8H-IV NENA Administration Sodium Chloride 1,000 mls @ 125 mls/hr 12/15/16 19:12 12/15/16 19:30 Normal Saline - IV 0 mls ASDIR NENA Administration Metoclopramide HCl 10 mg 12/15/16 18:45 12/16/16 02:12 Reglan Injection - IVPB 10 mg Q8H-IV NENA Administration Morphine Sulfate 1 mg 12/15/16 19:12 12/16/16 06:13 Morphine Injection - IVPUSH 1 mg Q6H PRN Administration PAIN Nicotine 7 mg 12/16/16 10:00 Nicoderm Patch - TD DAILY NENA ASSESSMENT/PLAN: This is a 36-year-old woman with a history of cholelithiasis who presented with RUQ pain. 1. Choledocholithiasis - ERCP done yesterday, stent placed but stone could not be extracted - Tolerating clear liquid diet - Check LFTs, lipase - Continue Rocephin, Flagyl - Surgery consult appreciated 2. Alcohol abuse 3. Nicotine dependence - Continue nicotine patch Visit type - Emergency Visit Emergency Visit: Yes ED Registration Date: 12/14/16 Care time: The patient presented to the Emergency Department on the above date and was hospitalized for further evaluation of their emergent condition. - New Patient This patient is new to me today: Yes Date on this admission: 12/16/16 - Critical Care Critical Care patient: No - Discharge Referral Referred to [id number] Med [facility] No
[2016-12-16] MEDS: NICOTINE 7 MG/24 HOURS TOPICAL PATCH TD SCH (09:56)
[2016-12-16] MEDS: cefTRIAXone 1 GM/50 ML BAG (PRE-DOCKED) IVPB SCH (09:56)
[2016-12-16] MEDS ORDERED: PT OWN MED DRAWER 7, Y5N ONE ×2 (09:59→17:22)
[2016-12-16] MEDS: SODIUM CHLORIDE 1,000 ML IV SCH ×2 (14:26→23:03)
--- NOTE | 2016-12-16 15:11 | PN ---
GI Progress Note Subjective: s/p ERCP abdominal pain less, tolerated diet, wbc 12,000 - Objective Vital Signs: Vital Signs Temperature 97.4 F L 12/16/16 13:55 Pulse Rate 74 12/16/16 13:55 Respiratory Rate 20 12/16/16 13:55 Blood Pressure 101/59 12/16/16 13:55 O2 Sat by Pulse Oximetry (%) 98 12/15/16 19:30 Constitutional: Well Nourished Eyes: Yes: Conjunctiva Clear HENT: Yes: Atraumatic Neck: Yes: Supple Cardiovascular: Yes: Regular Rate and Rhythm Respiratory: Yes: Regular ...Palpate: Yes: Soft, Tenderness (--mild ruq). No: Firm/Rigid, Guarding, Hepatomegaly, Mass, Pulsatile Mass, Splenomegaly Labs: CBC, BMP 12/16/16 08:40 12/16/16 08:40 INR, PTT INR 1.16 (0.82-1.09) H 12/14/16 07:34 Problem List - Problems (1) Dilated bile duct Code(s): K83.8 - OTHER SPECIFIED DISEASES OF BILIARY TRACT (2) Choledocholithiasis Assessment/Plan: R> await cholecystectomy CBD stone extraction to be arranged as an outpatient, patient made aware of the findings Code(s): K80.50 - CALCULUS OF BILE DUCT W/O CHOLANGITIS OR CHOLECYST W/O OBST
[2016-12-16] MEDS: PANTOPRAZOLE 40 MG TABLET (FP) PO SCH (17:43)
[2016-12-17] MEDS: morphine CARPU-JECT 2 MG/1 ML DISP.SYRIN IVPUSH PRN ×2 (02:42→09:20)
[2016-12-17] MEDS: METOCLOPRAMIDE HCL INJECTION 10 MG/2 ML VIAL IVPB SCH ×3 (02:43→18:17)
[2016-12-17] MEDS: METRONIDAZOLE PREMIXED IVPB 50 ML IVPB SCH ×3 (02:43→18:17)
[2016-12-17 07:15] LABS: BASOPHIL 0.5 % (0-2.0); EOSINOPHIL 6.2 % (0-4.5); MCH 28.9 pg (25.7-33.7); MCHC 33.5 g/dl (32.0-36.0); MEAN CELL VOLUME 86.4 fl (80-96); MEAN PLT VOLUME 7.5 fl (7.5-11.1); PLATELET COUNT 268 K/MM3 (134-434); RDW 14.7 % (11.6-15.6); WHITE BLOOD COUNT 10.6 K/mm3 (4.0-10.0)
[2016-12-17 07:57] LABS: ALBUMIN 2.7 g/dl (3.4-5.0); ANION GAP 8 (8-16); CALCIUM 7.9 mg/dL (8.5-10.1); CO2 25 mmol/L (21-32); GLUCOSE,RANDOM 101 mg/dL (74-106)
[2016-12-17 08:01] LABS: ALK PHOS 171 U/L (45-117); BILIRUBIN,TOTAL 0.3 mg/dL (0.2-1.0); CREATININE 0.6 mg/dL (0.55-1.02); SGOT/AST 45 U/L (15-37); SGPT/ALT 204 U/L (12-78); TOT PROT 5.4 g/dl (6.4-8.2)
--- NOTE | 2016-12-17 08:51 | PN ---
Physical Exam: SUBJECTIVE: Patient seen and examined. She continues to have abdominal pain. She has occasional nausea. She says that she is afraid to eat because of the pain. She also thinks morphine is making the pain worse. OBJECTIVE: Vital Signs Period Temp Pulse Resp BP Sys/Gomez Pulse Ox Last 24 Hr 97.4 F-98.8 F 54-89 17-20 101-154/59-75 GENERAL: The patient is awake, alert, and fully oriented, in no acute distress. LUNGS: Breath sounds equal, clear to auscultation bilaterally, no wheezes, no crackles, no accessory muscle use. HEART: Regular rate and rhythm, S1, S2 without murmur, rub or gallop. ABDOMEN: Soft, nondistended, RUQ tenderness, normoactive bowel sounds, no guarding, no rebound, no hepatosplenomegaly, no masses. EXTREMITIES: 2+ pulses, warm, well-perfused, no edema. Laboratory Results - last 24 hr 12/16/16 12/16/16 12/17/16 08:40 08:40 06:00 WBC 12.2 H 10.6 H RBC 3.87 3.81 Hgb 11.1 11.0 Hct 33.8 32.9 MCV 87.2 86.4 MCHC 32.9 33.5 RDW 14.9 14.7 Plt Count 291 268 MPV 7.6 7.5 Neutrophils % 56.0 Lymphocytes % 31.6 Monocytes % 5.7 Eosinophils % 6.2 H Basophils % 0.5 Sodium 142 Potassium 3.5 Chloride 110 H Carbon Dioxide 23 Anion Gap 9 BUN 6 L D Creatinine 0.6 Creat Clearance w eGFR Random Glucose 111 H D Calcium 8.3 L Total Bilirubin 0.5 D Direct Bilirubin 0.2 AST 71 H D ALT 283 H D Alkaline Phosphatase 210 H Total Protein 5.5 L Albumin 2.7 L Lipase 142 12/17/16 06:00 WBC RBC Hgb Hct MCV MCHC RDW Plt Count MPV Neutrophils % Lymphocytes % Monocytes % Eosinophils % Basophils % Sodium 143 Potassium 3.6 Chloride 110 H Carbon Dioxide 25 Anion Gap 8 BUN 4 L D Creatinine 0.6 Creat Clearance w eGFR > 60 Random Glucose 101 Calcium 7.9 L Total Bilirubin 0.3 D Direct Bilirubin AST 45 H D ALT 204 H D Alkaline Phosphatase 171 H Total Protein 5.4 L Albumin 2.7 L Lipase Active Medications Generic Name Dose Route Start Last Admin Trade Name Freq PRN Reason Stop Dose Admin Ceftriaxone Sodium 1 gm 12/16/16 10:00 12/16/16 09:56 Rocephin 1gm Ivpb (Pre-Docked) IVPB 1 gm DAILY NENA Administration Lactated Ringer's 1,000 mls @ 125 mls/hr 12/15/16 19:00 12/15/16 22:20 Lactated Ringers Solution IV Not Given ASDIR NENA Metronidazole 50 mls @ 50 mls/hr 12/16/16 02:00 12/17/16 02:43 Flagyl 250mg Premixed Ivpb - IVPB 50 mls/hr Q8H-IV NENA Administration Sodium Chloride 1,000 mls @ 125 mls/hr 12/15/16 19:12 12/16/16 23:03 Normal Saline - IV 125 mls/hr ASDIR NENA Administration Metoclopramide HCl 10 mg 12/15/16 18:45 12/17/16 02:43 Reglan Injection - IVPB 10 mg Q8H-IV NENA Administration Morphine Sulfate 1 mg 12/15/16 19:12 12/17/16 02:42 Morphine Injection - IVPUSH 1 mg Q6H PRN Administration PAIN Nicotine 7 mg 12/16/16 10:00 12/16/16 09:56 Nicoderm Patch - TD 7 mg DAILY NENA Administration Pantoprazole Sodium 40 mg 12/16/16 15:15 12/16/16 17:43 Protonix - PO 40 mg DAILY NENA Administration ASSESSMENT/PLAN: This is a 36-year-old woman with a history of cholelithiasis who presented with RUQ pain. 1. Choledocholithiasis - ERCP done 12/15, stent placed but stone could not be extracted - LFTs improving - Continue Rocephin, Flagyl, Reglan - Change morphine to Dilaudid as needed for pain - Plan for CBD exploration and cholecystectomy (? as outpatient) 2. Alcohol abuse 3. Nicotine dependence - Continue nicotine patch Visit type - Emergency Visit Emergency Visit: Yes ED Registration Date: 12/14/16 Care time: The patient presented to the Emergency Department on the above date and was hospitalized for further evaluation of their emergent condition. - New Patient This patient is new to me today: No - Critical Care Critical Care patient: No - Discharge Referral Referred to [facility] No
[2016-12-17] MEDS: cefTRIAXone 1 GM/50 ML BAG (PRE-DOCKED) IVPB SCH (09:20)
[2016-12-17] MEDS: NICOTINE 7 MG/24 HOURS TOPICAL PATCH TD SCH (09:21)
[2016-12-17] MEDS: PANTOPRAZOLE 40 MG TABLET (FP) PO SCH (09:21)
[2016-12-17] MEDS: HYDROmorphone HCL CARPU-JECT 1 MG/1 ML DISP.SYRIN IVPB PRN ×3 (12:00→20:26)
--- NOTE | 2016-12-17 12:50 | PN ---
Progress Note, Physician History of Present Illness: 36 yr old with large CBD stones, not able to be extracted by ERCP continues with occasional pain - Current Medication List Current Medications: Active Medications Ceftriaxone Sodium (Rocephin 1gm Ivpb (Pre-Docked)) 1 gm IVPB DAILY ENNA Last Admin: 12/17/16 09:20 Dose: 1 gm Hydromorphone HCl (Dilaudid Injection -) 0.5 mg IVPB Q4H PRN PRN Reason: PAIN Last Admin: 12/17/16 12:00 Dose: 0.5 mg Lactated Ringer's (Lactated Ringers Solution) 1,000 mls @ 125 mls/hr IV ASDIR NENA Last Admin: 12/15/16 22:20 Dose: Not Given Metronidazole (Flagyl 250mg Premixed Ivpb -) 50 mls @ 50 mls/hr IVPB Q8H-IV NENA Last Admin: 12/17/16 12:01 Dose: 50 mls/hr Sodium Chloride (Normal Saline -) 1,000 mls @ 125 mls/hr IV ASDIR NENA Last Admin: 12/16/16 23:03 Dose: 125 mls/hr Metoclopramide HCl (Reglan Injection -) 10 mg IVPB Q8H-IV NENA Last Admin: 12/17/16 09:24 Dose: 10 mg Nicotine (Nicoderm Patch -) 7 mg TD DAILY NENA Last Admin: 12/17/16 09:21 Dose: 7 mg Pantoprazole Sodium (Protonix -) 40 mg PO DAILY NENA Last Admin: 12/17/16 09:21 Dose: 40 mg - Objective Vital Signs: Vital Signs Temperature 98.1 F 12/17/16 09:56 Pulse Rate 64 12/17/16 09:56 Respiratory Rate 20 12/17/16 09:56 Blood Pressure 114/72 12/17/16 09:56 O2 Sat by Pulse Oximetry (%) 98 12/15/16 19:30 Labs: CBC, BMP 12/17/16 06:00 12/17/16 06:00 INR, PTT INR 1.16 (0.82-1.09) H 12/14/16 07:34 Problem List - Problems (1) Choledocholithiasis Code(s): K80.50 - CALCULUS OF BILE DUCT W/O CHOLANGITIS OR CHOLECYST W/O OBST (2) Dilated bile duct Code(s): K83.8 - OTHER SPECIFIED DISEASES OF BILIARY TRACT (3) Gallstones Code(s): K80.20 - CALCULUS OF GALLBLADDER W/O CHOLECYSTITIS W/O OBSTRUCTION Assessment/Plan 36 yr old with choleducholithiasis, s/p unsuccessful ERCP with Stent in place LFTs are trending down appropriately Will make plans for elective CBD exploration and cholecystectomy discussed with patient
[2016-12-17] MEDS ORDERED: PT OWN MED DRAWER 7, Y5N ONE (18:04)
[2016-12-17] MEDS: SODIUM CHLORIDE 1,000 ML IV SCH (18:26)
[2016-12-18] MEDS: HYDROmorphone HCL CARPU-JECT 1 MG/1 ML DISP.SYRIN IVPB PRN ×2 (00:30→06:30)
[2016-12-18] MEDS: METRONIDAZOLE PREMIXED IVPB 50 ML IVPB SCH ×2 (01:08→11:18)
[2016-12-18] MEDS: METOCLOPRAMIDE HCL INJECTION 10 MG/2 ML VIAL IVPB SCH ×2 (01:08→11:18)
[2016-12-18] MEDS: SODIUM CHLORIDE 1,000 ML IV SCH (06:44)
[2016-12-18 08:04] LABS: MCH 29.2 pg (25.7-33.7); MCHC 33.7 g/dl (32.0-36.0); MEAN CELL VOLUME 86.7 fl (80-96); PLATELET COUNT 273 K/MM3 (134-434); RDW 14.7 % (11.6-15.6); WHITE BLOOD COUNT 10.6 K/mm3 (4.0-10.0)
[2016-12-18 08:23] LABS: ALBUMIN 2.8 g/dl (3.4-5.0); ANION GAP 10 (8-16); BILIRUBIN,TOTAL 0.4 mg/dL (0.2-1.0); CO2 25 mmol/L (21-32); CREATININE 0.5 mg/dL (0.55-1.02); GLUCOSE,RANDOM 92 mg/dL (74-106); SGOT/AST 46 U/L (15-37); SGPT/ALT 172 U/L (12-78); TOT PROT 5.4 g/dl (6.4-8.2)
[2016-12-18 08:24] LABS: ALK PHOS 142 U/L (45-117)
[2016-12-18] MEDS: NICOTINE 7 MG/24 HOURS TOPICAL PATCH TD SCH (11:17)
[2016-12-18] MEDS: PANTOPRAZOLE 40 MG TABLET (FP) PO SCH (11:17)
[2016-12-18] MEDS: cefTRIAXone 1 GM/50 ML BAG (PRE-DOCKED) IVPB SCH (11:18)
[2016-12-18] MEDS ORDERED: ACETAMINOPHEN 325 MG TABLET (FP) PO PRN (11:53)
--- NOTE | 2016-12-18 11:54 | PN ---
Physical Exam: SUBJECTIVE: Patient seen and examined OBJECTIVE: Vital Signs Period Temp Pulse Resp BP Sys/Gomez Pulse Ox Last 24 Hr 98 F-98.6 F 65-77 20-20 100-125/65-87 98 GENERAL: The patient is awake, alert, and fully oriented, in no acute distress. HEAD: Normal with no signs of trauma. EYES: PERRL, extraocular movements intact, sclera anicteric, conjunctiva clear. No ptosis. ENT: Ears normal, nares patent, oropharynx clear without exudates, moist mucous membranes. NECK: Trachea midline, full range of motion, supple. LUNGS: Breath sounds equal, clear to auscultation bilaterally, no wheezes, no crackles, no accessory muscle use. HEART: Regular rate and rhythm, S1, S2 without murmur, rub or gallop. ABDOMEN: Soft, nontender, nondistended, normoactive bowel sounds, no guarding, no rebound, no hepatosplenomegaly, no masses. EXTREMITIES: 2+ pulses, warm, well-perfused, no edema. NEUROLOGICAL: Cranial nerves II through XII grossly intact. Normal speech, gait not observed. PSYCH: Normal mood, normal affect. SKIN: Warm, dry, normal turgor, no rashes or lesions noted Laboratory Results - last 24 hr 12/18/16 12/18/16 06:45 06:45 WBC 10.6 H RBC 3.76 Hgb 11.0 Hct 32.6 MCV 86.7 MCHC 33.7 RDW 14.7 Plt Count 273 MPV 8.0 Sodium 142 Potassium 3.7 Chloride 107 Carbon Dioxide 25 Anion Gap 10 BUN 6 L D Creatinine 0.5 L Creat Clearance w eGFR > 60 Random Glucose 92 Calcium 8.0 L Total Bilirubin 0.4 D AST 46 H ALT 172 H Alkaline Phosphatase 142 H Total Protein 5.4 L Albumin 2.8 L Active Medications Generic Name Dose Route Start Last Admin Trade Name Freq PRN Reason Stop Dose Admin Acetaminophen 650 mg 12/18/16 11:53 Tylenol - PO Q4H PRN FEVER OR PAIN Ceftriaxone Sodium 1 gm 12/16/16 10:00 12/18/16 11:18 Rocephin 1gm Ivpb (Pre-Docked) IVPB 1 gm DAILY NENA Administration Metronidazole 50 mls @ 50 mls/hr 12/16/16 02:00 12/18/16 11:18 Flagyl 250mg Premixed Ivpb - IVPB 50 mls/hr Q8H-IV NENA Administration Metoclopramide HCl 10 mg 12/15/16 18:45 12/18/16 11:18 Reglan Injection - IVPB 10 mg Q8H-IV NENA Administration Nicotine 7 mg 12/16/16 10:00 12/18/16 11:17 Nicoderm Patch - TD 7 mg DAILY NENA Administration Pantoprazole Sodium 40 mg 12/16/16 15:15 12/18/16 11:17 Protonix - PO 40 mg DAILY NENA Administration ASSESSMENT/PLAN:
[2016-12-18 14:17] VITALS: BP 107/65; PULSE 79; TEMP 98.5
--- NOTE | 2016-12-18 15:16 | PN ---
Teaching Attending Note Name of Resident: Giancarlo Chapa ATTENDING PHYSICIAN STATEMENT I saw and evaluated the patient. I reviewed the resident's note and discussed the case with the resident. I agree with the resident's findings and plan as documented. SUBJECTIVE: Pain is less severe. OBJECTIVE: Vital Signs Period Temp Pulse Resp BP Sys/Gomez Pulse Ox Last 24 Hr 98.2 F-98.6 F 65-79 20-20 100-125/65-87 98 GENERAL: The patient is awake, alert, and fully oriented, in no acute distress. LUNGS: Breath sounds equal, clear to auscultation bilaterally, no wheezes, no crackles, no accessory muscle use. HEART: Regular rate and rhythm, S1, S2 without murmur, rub or gallop. ABDOMEN: Soft, nondistended, non-tender, normoactive bowel sounds, no guarding, no rebound, no hepatosplenomegaly, no masses. EXTREMITIES: 2+ pulses, warm, well-perfused, no edema. ASSESSMENT AND PLAN: This is a 36-year-old woman with a history of cholelithiasis who presented with RUQ pain. 1. Choledocholithiasis - ERCP done 12/15, stent placed but stone could not be extracted - LFTs improving - Discharge home on Levaquin, Flagyl and Ultram - Surgery follow-up for elective CBD exploration and cholecystectomy 2. Alcohol abuse 3. Nicotine dependence - Continue nicotine patch
--- NOTE | 2016-12-18 15:43 | DS ---
Physical Exam: SUBJECTIVE: Patient seen and examined. abdominal pain improved, tolerating po, stable for discharge and outpatient follow-up. OBJECTIVE: Vital Signs Period Temp Pulse Resp BP Sys/Gomez Pulse Ox Last 24 Hr 98.2 F-98.6 F 65-79 20-20 100-125/65-87 98 PHYSICAL EXAM GENERAL: The patient is awake, alert, and fully oriented, in no acute distress. HEAD: Normal with no signs of trauma. EYES: PERRL, extraocular movements intact, sclera anicteric, conjunctiva clear. ENT: Ears normal, nares patent, oropharynx clear without exudates, moist mucous membranes. NECK: Trachea midline, full range of motion, supple. LUNGS: Breath sounds equal, clear to auscultation bilaterally, no wheezes, no crackles, no accessory muscle use. HEART: Regular rate and rhythm, S1, S2 without murmur, rub or gallop. ABDOMEN: Soft, mild tenderness in epigastrium in RUQ, nondistended, normoactive bowel sounds, no guarding, no rebound. EXTREMITIES: 2+ pulses, warm, well-perfused, no edema. NEUROLOGICAL: Cranial nerves II through XII grossly intact. Normal speech, gait not observed. PSYCH: Normal mood, normal affect. SKIN: Warm, dry, normal turgor, no rashes or lesions noted. LABS Laboratory Results - last 24 hr 12/18/16 12/18/16 06:45 06:45 WBC 10.6 H RBC 3.76 Hgb 11.0 Hct 32.6 MCV 86.7 MCHC 33.7 RDW 14.7 Plt Count 273 MPV 8.0 Sodium 142 Potassium 3.7 Chloride 107 Carbon Dioxide 25 Anion Gap 10 BUN 6 L D Creatinine 0.5 L Creat Clearance w eGFR > 60 Random Glucose 92 Calcium 8.0 L Total Bilirubin 0.4 D AST 46 H ALT 172 H Alkaline Phosphatase 142 H Total Protein 5.4 L Albumin 2.8 L Beta HCG, Quant 1.3 HOSPITAL COURSE: Date of Admission:12/14/16 - Date of Discharge: 12/18/16 36 yr old woman with a hx of cholelithiasis presented with right upper quadrant pain after a weekend of heavy drinking and tylenol use found to have common bile duct dilation on ultrasound and elevated LFTs. On MRCP she was found to have a 4-5 mm stone in distal CBD with mild proximal CBD dilatation measuring 7mm and mild intrahepatic biliary ductal fluid. ERCP to extract the stone was unsuccessful; as per the operative note:"the biliary orifice was at 10'clock making the cannulation difficult. Two large stone were found. A precut 1.5cm sphincterotmy was done, after 3 attempts to deliver the stones with ballon failed, a 7fr 5cm double pigtail stent was inserted." She tolerated the procedure well. Her LFT's trended down as did her leucocytosis. She tolerated regular diet well and was stable for outpatient follow-up. She was started on flagyl q8hr and rocephin daily on 12/14 to be continued until December [address] Valentin in his office. Minutes to complete discharge: 36 Discharge Summary Reason For Visit: COMMON BILE DUCT CALCULUS Current Active Problems Choledocholithiasis (Acute) Dilated bile duct (Acute) Gallstones (Acute) Condition: Stable - Instructions Diet, Activity, Other Instructions: Call [phone] to call for an appointment at [place] with Dr. Yung, call CARIDAD Gee [phone] if you have any trouble getting any appointment. Take your antibiotics as prescribed until you see Dr. Yung in his office on Sunday or Dr[facility] Avina at [facility] on Sunday. Take Flagyl 1 tablet every 8 hours and Levofloxacin 500mg 1 tablet daily. Drink plenty of water, avoid fried and fatty food. You cannot drink alcohol while on these antibiotics. Follow-up with your [employer] doctor regarding your beta-hcg results, your level in the hospital today is 1.3, your urine test was negative. Discuss continuing the antibiotics with Dr. Yung or . Avoid pain medications with Tylenol. Continue your efforts to stop smoking, speak with your primary care doctor about using the nicotine patch. If your develop a fever, abdominal pain that does not get better, vomiting, chest pain, or any new symptoms, return to the hospital. Disposition: HOME - Home Medications Comprehensive Discharge Medication List: Ambulatory Orders Levofloxacin [Levaquin] 500 mg PO DAILY #4 tablet 12/18/16 Metronidazole [Flagyl -] 250 mg PO Q8H #13 tablet 12/18/16 Tramadol HCl [Ultram] 50 mg PO Q8H #9 tablet MDD 3 12/18/16 This patient is new to me today: No Emergency Visit: No Critical Care patient: No - Discharge Referral Referred to [facility] No
[2016-12-18] MEDS ORDERED: IBUPROFEN 600 MG TABLET (FP) PO ONE (16:00)
== END 2016-12-18 18:33 | disposition home or self-care (01) ==
LOC: JER 03:41 → JERBED 09:10 → J7W 11:04
PROVIDERS: ADMIT Internal Medicine; ATTEND Internal Medicine
PROC: 0F7C8ZZ Dilation of Ampulla of Vater, Via Natural or Artificial Opening Endoscopic (ICD-10-PCS; 2016-12-15)
PROC: 0F798DZ Dilation of Common Bile Duct with Intraluminal Device, Via Natural or Artificial Opening Endoscopic (ICD-10-PCS; 2016-12-15)
PROC: 0FC98ZZ Extirpation of Matter from Common Bile Duct, Via Natural or Artificial Opening Endoscopic (ICD-10-PCS; principal; 2016-12-15 16:00)
DX: K80.50 Calculus of bile duct without cholangitis or cholecystitis without obstruction (principal); R74.0 Nonspecific elevation of levels of transaminase and lactic acid dehydrogenase [LDH]; F10.10 Alcohol abuse, uncomplicated; K83.8 Other specified diseases of biliary tract; F17.210 Nicotine dependence, cigarettes, uncomplicated
CPT/HCPCS: 36415; 74181-TC; 76001-TC; 76705-TC; 80048; 80053; 80076; 80307; 83690; 84702; 84703; 85025; 85027; 85610; 85730; 93005; 93010; 94760; 99285-25

== ENCOUNTER 2017-03-25 06:40 | Inpatient (IN) | payer OTHER ==
[2017-03-25] MEDS ORDERED: SODIUM CHLORIDE 1,000 ML IV STA (07:40)
[2017-03-25] MEDS ORDERED: morphine CARPU-JECT 4 MG/1 ML DISP.SYRIN IVPUSH ONE ×2 (07:40→09:25)
--- NOTE | 2017-03-25 07:40 | PDOC ---
History of Present Illness - General History Source: Patient, Old Records Exam Limitations: No Limitations <Colleen Palomo - Last Filed: 03/25/17 09:35> - General History Source: Patient Exam Limitations: No Limitations - History of Present Illness Initial Comments: 03/25/17 07:45 The patient is a 36-year-old woman with a past medical history of gallstones who presents to the emergency department for further evaluation of abdominal pain for the past week. No fall, strenuous activity. She describes her pain as an intermittent sharp sensation that starts on her mid-epigastrium and radiates to her right upper quadrant with a rated 10/10 in intensity with associated nausea and chills. She notes that eating exacerbates her pain. She reports compliance with Motrin, but reports mild relief as it only provides temporary relief. She reports that she has a history of gallstones and was recommended to have a Cholecystectomy but did not comply due to personal matters. Patient reports that her pain has progressively worsen throughout the night, thus presenting to the ED. Last menstrual period was reportedly two days ago. She denies fever, diaphoresis, generalized weakness. She denies chest pain, shortness of breath, cough She denies vomiting, diarrhea, dysuria, hematuria, urinary frequency and urgency , flank pain, vaginal discharge/vaginal bleeding Allergies: No Known Drug Allergies Past Surgical History: Caesarian Section Social History: Current everyday cigarette use (approximately 4-5 cigarettes/day ). EtOH every 2-3 days. No recreational drug use. <Niurka Rouse - Last Filed: 03/25/17 09:41> - General Chief Complaint: Pain Stated Complaint: PAIN Time Seen by Provider: 03/25/17 07:25 Past History - Past Medical History Other medical history: GALLSTONES. - Surgical History Abdominal Surgery: Yes - Immunization History Td Vaccination: No - Psycho/Social/Smoking Cessation Hx Anxiety: No Suicidal Ideation: No Smoking Status: Yes Smoking History: Current every day smoker Have you smoked in the past 12 months: No Number of Cigarettes Smoked Daily: 10 Information on smoking cessation initiated: No 'Breaking Loose' booklet given: 12/14/16 Hx Alcohol Use: No Drug/Substance Use Hx: No Substance Use Type: None Hx Substance Use Treatment: No <Colleen Palomo - Last Filed: 03/25/17 09:35> <Shad Rouseine - Last Filed: 03/25/17 09:41> - Past Medical History Allergies/Adverse Reactions: Allergies Allergy/AdvReac Type Severity Reaction Status Date / Time No Known Allergies Allergy Verified 03/25/17 07:11 Home Medications: Ambulatory Orders NK [No Known Home Medication] 03/25/17 Review of Systems - Review of Systems Able to Perform ROS?: Yes Comments:: 03/25/17 07:45 GENERAL/CONSTITUTIONAL: Yes: Chills. No fever. No weakness. HEAD, EYES, EARS, NOSE AND THROAT: No change in vision. No ear pain or discharge. No sore throat. CARDIOVASCULAR: No chest pain or shortness of breath. RESPIRATORY: No cough, wheezing, or hemoptysis. GASTROINTESTINAL: Yes: Abdominal Pain. Nausea. No vomiting, diarrhea or constipation. GENITOURINARY: No dysuria, frequency, or change in urination. MUSCULOSKELETAL: No joint or muscle swelling or pain. No neck or back pain. SKIN: No rash NEUROLOGIC: No headache, vertigo, loss of consciousness, or change in strength/ sensation. ENDOCRINE: No increased thirst. No abnormal weight change. HEMATOLOGIC/LYMPHATIC: No anemia, easy bleeding, or history of blood clots. ALLERGIC/IMMUNOLOGIC: No hives or skin allergy. <PadmaNiurka - Last Filed: 03/25/17 09:41> *Physical Exam - Vital Signs Last Vital Signs Temp Pulse Resp BP Pulse Ox 98 F 84 18 109/80 99 03/25/17 07:12 03/25/17 07:12 03/25/17 07:12 03/25/17 07:12 03/25/17 07:12 <Colleen Palomo - Last Filed: 03/25/17 09:35> - Vital Signs Last Vital Signs Temp Pulse Resp BP Pulse Ox 98 F 84 18 109/80 99 03/25/17 07:12 03/25/17 07:12 03/25/17 07:12 03/25/17 07:12 03/25/17 07:12 - Physical Exam Comments: 03/25/17 07:45 GENERAL: Awake, alert, and fully oriented, in no acute distress HEAD: No signs of trauma EYES: PERRLA, EOMI, sclera anicteric, conjunctiva clear ENT: Auricles normal inspection, hearing grossly normal, nares patent, oropharynx clear without exudates. Moist mucosa NECK: Normal ROM, supple, no lymphadenopathy, JVD, or masses LUNGS: Breath sounds equal, clear to auscultation bilaterally. No wheezes, and no crackles HEART: Regular rate and rhythm, normal S1 and S2, no murmurs, rubs or gallops ABDOMEN: Soft,there is some right upper quadrant tenderness to palpation with a positive Emmanuel's sign. Normoactive bowel sounds. No guarding, no rebound. No masses EXTREMITIES: Normal range of motion, no edema. No clubbing or cyanosis. No cords, erythema, or tenderness NEUROLOGICAL: Cranial nerves II through XII grossly intact. Normal speech. <Niurka Rouse - Last Filed: 03/25/17 09:41> ED Treatment Course - LABORATORY CBC & Chemistry Diagram: 03/25/17 08:10 03/25/17 08:10 <Colleen Palomo - Last Filed: 03/25/17 09:35> - LABORATORY CBC & Chemistry Diagram: 03/25/17 08:10 03/25/17 08:10 - RADIOLOGY Radiograph Interpretation: 03/25/17 09:31 EXAM: US/ABDOMEN US -LIMITED Interpreted by Dr. Mac Rolon IMPRESSION: Abdominal sonogram Limited to right upper quadrant HISTORY: Right upper quadrant pain Prior study 12/14/2016 available for correlation Multiple gallstones. Gallbladder wall thickening measuring up to 0.6 cm. Dilated common duct measuring 10 mm with common duct stent noted. Gallstones are seen within the common duct. There was a positive Emmanuel sign. Liver has a heterogeneous echotexture. No pancreatic mass identified. Right kidney measures 10.7 cm and is unremarkable. Visualized portions of the aorta and IVC unremarkable. <Niurka Rouse - Last Filed: 03/25/17 09:41> Medical Decision Making - Medical Decision Making 03/25/17 08:04 36-year-old female with history of choledocholithiasis status post biliary stent placed earlier this year presents the emergency Department with complaints of right upper quadrant pain and nausea times one week. Differential diagnosis includes but is not limited to: Acute cholecystitis, biliary colic, pancreatitis, hepatitis, dehydration, electrolyte abnormality, toxic/metabolic derangement. Plan: 1. Labs 2. IV fluids for hydration 3. Pain management 4. Right upper quadrant ultrasound 5. Observe and reevaluate 03/25/17 09:35 Addendum: Labs show an elevated white blood cell count of 14.5. The ultrasound is significant for a positive Emmanuel sign as well as cholelithiasis and choledocholithiasis. Given these findings, will consult surgery on-call and will admit to the hospitalist service. I will keep the patient nothing by mouth and continue to manage her pain. <Colleen Palomo - Last Filed: 03/25/17 09:35> - Medical Decision Making 03/25/17 09:31 MicroBlogged Hospitalist. 03/25/17 09:40 Paged Surgeon, Dr. Mac Garrett. Immediate response. Case was discussed. <Niurka Rouse - Last Filed: 03/25/17 09:41> *DC/Admit/Observation/Transfer - Discharge Dispostion Admit: Yes - Attestations Physician Attestion: 03/25/17 08:06 I, Dr. Colleen Palomo, attest that the scribes documentation that appears above has been prepared under my direction and personally reviewed by me in its entirety. I confirmed that the note above accurately reflects all work, treatment, procedures, and medical decision-making performed by me. <Colleen Palomo - Last Filed: 03/25/17 09:35> - Attestations Scribe Attestion: 03/25/17 07:45 Documentation prepared by Niurka Rouse, acting as medical records tech for Colleen Palomo MD. <Niurka Rouse - Last Filed: 03/25/17 09:41> Diagnosis at time of Disposition: RUQ pain, Acute cholecystitis - Discharge Dispostion Condition at time of disposition: Stable
[2017-03-25] MEDS ORDERED: morphine CARPU-JECT 4 MG/1 ML DISP.SYRIN ONE ×2 (07:53→10:07)
[2017-03-25 08:39] LABS: URINE APPEARANCE SLCLOUDY; URINE BILIRUBIN NEGATIVE (NEGATIVE); URINE BLOOD 1+ (NEGATIVE); URINE COLOR YELLOW; URINE GLUCOSE (UA) NEGATIVE (NEGATIVE); URINE KETONE 1+ (NEGATIVE); URINE LEUK ESTERASE NEGATIVE (NEGATIVE); URINE NITRITE NEGATIVE (NEGATIVE); URINE PROTEIN NEGATIVE (NEGATIVE); URINE UROBILINOGEN NEGATIVE E.U./dl (0.2-1.0)
[2017-03-25 08:44] LABS: URINE MUCUS MANY; URINE RBC 1 /hpf (0-3); URINE WBC 3 /hpf (3-5)
[2017-03-25 08:46] LABS: ALBUMIN 3.2 g/dl (3.4-5.0); ALK PHOS 109 U/L (45-117); ANION GAP 9 (8-16); BILIRUBIN,TOTAL 0.9 mg/dL (0.2-1.0); CALCIUM 8.7 mg/dL (8.5-10.1); CO2 25 mmol/L (21-32); COCKROFT - GAULT 148.5205; CREATININE 0.6 mg/dL (0.55-1.02); GLUCOSE,RANDOM 86 mg/dL (74-106); MAGNESIUM 1.9 mg/dL (1.8-2.4); PHOSPHOROUS 3.3 mg/dL (2.5-4.9); SGOT/AST 19 U/L (15-37); SGPT/ALT 27 U/L (12-78); TOT PROT 6.7 g/dl (6.4-8.2)
[2017-03-25 08:58] LABS: BASOPHIL 0.6 % (0-2.0); EOSINOPHIL 2.2 % (0-4.5); MCH 27.5 pg (25.7-33.7); MEAN CELL VOLUME 83.2 fl (80-96); NEUTROPHILS 78.4 % (42.8-82.8); PLATELET COUNT 365 K/MM3 (134-434); RDW 14.2 % (11.6-15.6); WHITE BLOOD COUNT 14.5 K/mm3 (4.0-10.0)
[2017-03-25] MEDS ORDERED: CEFTRIAXONE 1,000 MG in DEXTROSE 5%-WATER - 50 ML IVPB ONE (09:43)
[2017-03-25] MEDS ORDERED: HYDROmorphone HCL CARPU-JECT 1 MG/1 ML DISP.SYRIN IVPUSH PRN (09:54)
[2017-03-25] MEDS ORDERED: DEXTROSE 5%-NORMAL SALINE 1,000 ML IV SCH (10:00)
--- NOTE | 2017-03-25 10:05 | HP ---
CHIEF COMPLAINT: abd pain PCP: Does not have PCP GI: Dr. Low Surgeon Dr. Osborne HISTORY OF PRESENT ILLNESS: The patient is a 36-year-old woman with a past medical history of gallstones who presents to the emergency department for further evaluation of abdominal pain for the past week. No fall, strenuous activity. She describes her pain as an intermittent sharp sensation that starts on her mid-epigastrium and radiates to her right upper quadrant with a rated 10/10 in intensity with associated nausea and chills. She notes that eating exacerbates her pain. She reports compliance with Motrin, but reports mild relief as it only provides temporary relief. She reports that she has a history of gallstones and was recommended to have a Cholecystectomy but did not comply due to personal matters. Patient reports that her pain has progressively worsen throughout the night, thus presenting to the ED. Last menstrual period was reportedly two days ago. She denies fever, diaphoresis, generalized weakness. She denies chest pain, shortness of breath, cough She denies vomiting, diarrhea, dysuria, hematuria, urinary frequency and urgency , flank pain, vaginal discharge/vaginal bleeding Allergies: No Known Drug Allergies Past Surgical History: Caesarian Section Social History: Current everyday cigarette use (approximately 4-5 cigarettes/day ). EtOH every 2-3 days. No recreational drug use. ER course was notable for: (1) US with choledocholithiasis with 10 mm CBD dilatation (2) ABT (3) GI and Surgical Consult Recent Travel: denies PAST MEDICAL HISTORY: choledocholithiasis with stenting 12/08 with stones in CBD and GB unable to retrieve PAST SURGICAL HISTORY: c section Social History: Smoking: Alcohol: Drugs: Family History: Allergies No Known Allergies Allergy (Verified 03/25/17 07:11) HOME MEDICATIONS: Home Medications Medication Instructions Recorded NK [No Known Home Medication] 03/25/17 REVIEW OF SYSTEMS CONSTITUTIONAL: Absent: fever, chills, diaphoresis, generalized weakness, malaise, loss of appetite, weight change HEENT: Absent: rhinorrhea, nasal congestion, throat pain, throat swelling, difficulty swallowing, mouth swelling, ear pain, eye pain, visual changes CARDIOVASCULAR: Absent: chest pain, syncope, palpitations, irregular heart rate, lightheadedness , peripheral edema RESPIRATORY: Absent: cough, shortness of breath, dyspnea with exertion, orthopnea, wheezing, stridor, hemoptysis GASTROINTESTINAL: Absent:(+) abdominal pain, abdominal distension,(+) nausea, (+)vomiting, diarrhea, constipation, melena, hematochezia GENITOURINARY: Absent: dysuria, frequency, urgency, hesitancy, hematuria, flank pain, genital pain MUSCULOSKELETAL: Absent: myalgia, arthralgia, joint swelling, back pain, neck pain SKIN: Absent: rash, itching, pallor HEMATOLOGIC/IMMUNOLOGIC: Absent: easy bleeding, easy bruising, lymphadenopathy, frequent infections ENDOCRINE: Absent: unexplained weight gain, unexplained weight loss, heat intolerance, cold intolerance NEUROLOGIC: Absent: headache, focal weakness or paresthesias, dizziness, unsteady gait, seizure, mental status changes, bladder or bowel incontinence PSYCHIATRIC: Absent: anxiety, depression, suicidal or homicidal ideation, hallucinations. PHYSICAL EXAMINATION Vital Signs - 24 hr 03/25/17 07:12 Temperature 98 F Pulse Rate 84 Respiratory 18 Rate Blood Pressure 109/80 O2 Sat by Pulse 99 Oximetry (%) GENERAL: Awake, alert, and fully oriented, in no acute distress. HEAD: Normal with no signs of trauma. EYES: Pupils equal, round and reactive to light, extraocular movements intact, sclera anicteric, conjunctiva clear. No lid lag. EARS, NOSE, THROAT: Ears normal, nares patent, oropharynx clear without exudates. Moist mucous membranes. NECK: Normal range of motion, supple without lymphadenopathy, JVD, or masses. LUNGS: Breath sounds equal, clear to auscultation bilaterally. No wheezes, and no crackles. No accessory muscle use. HEART: Regular rate and rhythm, normal S1 and S2 without murmur, rub or gallop. ABDOMEN: Soft, + Emmanuel tender, not distended, normoactive bowel sounds, + guarding, + rebound, no masses. No hepatomegaly or splenomegaly. MUSCULOSKELETAL: Normal range of motion at all joints. No bony deformities or tenderness. No CVA tenderness. UPPER EXTREMITIES: 2+ pulses, warm, well-perfused. No cyanosis. No clubbing. No peripheral edema. LOWER EXTREMITIES: 2+ pulses, warm, well-perfused. No calf tenderness. No peripheral edema. NEUROLOGICAL: Cranial nerves II-XII intact. Normal speech. Normal gait. PSYCHIATRIC: Cooperative. Good eye contact. Appropriate mood and affect. SKIN: Warm, dry, normal turgor, no rashes or lesions noted, normal capillary refill. Laboratory Results - last 24 hr 03/25/17 03/25/17 03/25/17 07:51 08:10 08:10 WBC 14.5 H D RBC 4.31 Hgb 11.8 Hct 35.9 MCV 83.2 MCHC 33.0 RDW 14.2 Plt Count 365 D MPV 8.0 Neutrophils % 78.4 D Lymphocytes % 12.5 D Monocytes % 6.3 Eosinophils % 2.2 Basophils % 0.6 Sodium 140 Potassium 4.1 Chloride 106 Carbon Dioxide 25 Anion Gap 9 BUN 12 D Creatinine 0.6 Creat Clearance w eGFR > 60 Random Glucose 86 Calcium 8.7 Phosphorus 3.3 Magnesium 1.9 Total Bilirubin 0.9 D AST 19 D ALT 27 D Alkaline Phosphatase 109 D Total Protein 6.7 D Albumin 3.2 L Lipase 79 Urine Color Yellow Urine Appearance Slcloudy Urine pH 5.0 D Urine Protein Negative Urine Glucose (UA) Negative Urine Ketones 1+ H Urine Blood 1+ H Urine Nitrite Negative Urine Bilirubin Negative Urine Urobilinogen Negative Ur Leukocyte Esterase Negative Urine RBC 1 Urine WBC 3 Ur Epithelial Cells Moderate Urine Mucus Many Urine HCG, Qual Negative ASSESSMENT/PLAN: This 36 yr old female with c/o abd pain with n, v with a finding of choledocholithiasis on u/s 1. choledocholithiasis -consult GI Dr. Low/Charles ordered and pending -consult by surgery Dr. Garrett placed in ER. -called Dr. Osborne, surgeon in the previous admission, with awaiting phone call (however pt did not follow up with him after her last admission) -pain meds switched to dilaudid -IVF D5NS at 100 -zofran prn -NPO for now until GI and Surgery follow up -trend labs -antibiotics -admission inpt med surg placed. Visit type - Emergency Visit Emergency Visit: Yes ED Registration Date: 03/25/17 Care time: The patient presented to the Emergency Department on the above date and was hospitalized for further evaluation of their emergent condition. - New Patient This patient is new to me today: Yes Date on this admission: 03/25/17 - Critical Care Critical Care patient: No
[2017-03-25] MEDS ORDERED: CEFTRIAXONE 50 ML ONE (10:07)
[2017-03-25] MEDS ORDERED: ONDANSETRON 4 MG/2 ML VIAL IVPUSH PRN (11:21)
[2017-03-25] MEDS ORDERED: METRONIDAZOLE 500 MG PREMIXED 100 ML IVPB SCH (11:45)
[2017-03-25] MEDS ORDERED: LEVOFLOXACIN 500 MG IVPB 100 ML IVPB SCH (11:45)
[2017-03-25] MEDS ORDERED: ACETAMINOPHEN 1000 MG/100 ML VIAL (NON FORMULARY) IVPB PRN (11:56)
[2017-03-25] MEDS ORDERED: HYDROmorphone HCL CARPU-JECT 1 MG/1 ML DISP.SYRIN ONE ×2 (12:23→14:26)
[2017-03-25] MEDS ORDERED: METRONIDAZOLE 500 MG PREMIXED 100 ML IVPB ONE (12:32)
[2017-03-25 12:36] VITALS: BMI 26.6
[2017-03-25] MEDS ORDERED: LEVOFLOXACIN 500 MG IVPB 100 ML IVPB ONE (13:06)
--- NOTE | 2017-03-25 13:32 | PN ---
Progress Note (short form) - Note Progress Note: Called to see patient seen in the past with choledocholithiasis. At that time, there were 2 large stones lodged inthe CBD. ERCP was performed and we were not able to remove the stones. A stent was placed to drain the CBD and the plan was for her to go to a tertiary care hospital to have CBD exploration and cholecystectomy. She failed to comply and is now here with 10/10 abdominal pain and leukocytosis. LFTs are normal at this time and vital signs are stable. She has received antibiotics (levaquin and flagyl) BECAUSE WE WERE UNABLE TO REMOVE THE STONES FROM HER CBD (WHICH ARE VISUALIZED ON U/S DONE THIS ADMISSION) AND BECAUSE SHE HAS IMPENDING BILIARY SEPSIS, SHE NEEDS TO BE TRANSFERRED TO A [facility]. I DISCUSSED THIS WITH THE ER ATTENDING (DR GIPSON) AND THE PATIENT'S NURSE PRACTITIONER. ARRANGEMENTS TO BE MADE. SPOKE WITH DR PETERSEN AT [facility] (SURGERY) AND HE IS ACCEPTING THE PATIENT.
--- NOTE | 2017-03-25 14:05 | PN ---
Progress Note (short form) - Note Progress Note: [address] Soto consult note for GI. He feels that it is imprerative that pt be transferred to higher level of care for retrieval of CBD stones in light of the elevated WBC, presentation, although the LFTs are normal currently. After speaking with Dr. Palomo, ED physician, pt is to be transferred out. Call placed to [facility] for transfer with accepting page hospitalyician, Dr. Kumar, surgery. Dr. Soto spoke physician to physician to discuss the case of concern further and pt will be transferred. Pt remains NPO, IVF, Flagyl and Levaquin, Dilaudid PRN. Pt is aware of transfer and in full agreement. DREW Gonzales- Visit type - Emergency Visit Emergency Visit: Yes ED Registration Date: 03/25/17 Care time: The patient presented to the Emergency Department on the above date and was hospitalized for further evaluation of their emergent condition. - New Patient This patient is new to me today: Yes Date on this admission: 03/25/17 - Critical Care Critical Care patient: No - Discharge Referral Referred to [facility] Med P.C.: No
[2017-03-25] MEDS ORDERED: HYDROmorphone HCL CARPU-JECT 1 MG/1 ML DISP.SYRIN IVPUSH ONE (14:20)
[2017-03-25 14:23] VITALS: BP 108/74; PULSE 79; TEMP 98.1
== END 2017-03-25 14:51 | disposition short-term general hospital (02) ==
LOC: JER 06:40 → JERBED 09:51
PROVIDERS: ADMIT Surgery; ATTEND Surgery
DX: K80.50 Calculus of bile duct without cholangitis or cholecystitis without obstruction (principal); F17.210 Nicotine dependence, cigarettes, uncomplicated; R79.89 Other specified abnormal findings of blood chemistry
CPT/HCPCS: 36415; 76705-TC; 80053; 81003; 81015; 83605; 83690; 83735; 84100; 84703; 85025; 87040; 99285-25

== ENCOUNTER 2018-07-06 05:38 | Emergency (ER) | payer OTHER ==
[2018-07-06 05:57] VITALS: BP 128/73; TEMP 98.5; BMI 29.2
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
[2018-07-06 08:09] VITALS: PULSE 94
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
[2018-07-06] MEDS ORDERED: KETOROLAC TROMETHAMINE 60 MG/2 ML VIAL IM ONE (09:21)
[2018-07-06] MEDS ORDERED: ACETAMINOPHEN 325 MG TABLET (FP) PO ONE (09:24)
[2018-07-06] MEDS ORDERED: ACETAMINOPHEN 325 MG TABLET (FP) ONE (09:57)
[2018-07-06] MEDS ORDERED: KETOROLAC TROMETHAMINE 60 MG/2 ML VIAL ONE (09:57)
== END 2018-07-06 10:11 | disposition home or self-care (01) ==
LOC: JER 05:38
DX: S02.2XXA Fracture of nasal bones, initial encounter for closed fracture (principal); R51 Headache; Y04.2XXA Assault by strike against or bumped into by another person, initial encounter; Y93.89 Activity, other specified; Y92.039 Unspecified place in apartment as the place of occurrence of the external cause; Y99.8 Other external cause status; Y07.9 Unspecified perpetrator of maltreatment and neglect
CPT/HCPCS: 70450-TC; 70486-TC; 72125-TC; 84703; 99285-25